=== PATIENT | male | born 1960 | race Caucasian/White ===

== ENCOUNTER 2017-03-13 20:10 | Observation (INO) | payer BC ==
[2017-03-13] MEDS ORDERED: Aspirin 81 MG Tab.Chew PO ONE (20:16)
[2017-03-13] MEDS ORDERED: Sodium Chloride 0.9% 1,000 ML IV ONE (20:16)
--- NOTE | 2017-03-13 20:19 | EDM.PDOC ---
ED HPI GENERAL MEDICAL PROBLEM - General Stated Complaint: CHEST PAIN Time Seen by Provider: 03/13/17 20:19 Source of Information: Reports: Patient - History of Present Illness INITIAL COMMENTS - FREE TEXT/NARRATIVE: HISTORY AND PHYSICAL: History of present illness: [Patient stop digoxin on his own] Review of systems: As per history of present illness and below otherwise all systems reviewed and negative. Past medical history: As per history of present illness and as reviewed below otherwise noncontributory. Surgical history: As per history of present illness and as reviewed below otherwise noncontributory. Social history: No reported history of drug or alcohol abuse. Family history: As per history of present illness and as reviewed below otherwise noncontributory. Physical exam: HEENT: Atraumatic, normocephalic, pupils reactive, negative for conjunctival pallor or scleral icterus, mucous membranes moist, throat clear, neck supple, nontender, trachea midline. Lungs: Clear to auscultation, breath sounds equal bilaterally, chest nontender. Heart: S1S2, regular, negative for clicks, rubs, or JVD. Abdomen: Soft, nondistended, nontender. Negative for masses or hepatosplenomegaly. Negative for costovertebral tenderness. Pelvis: Stable nontender. Genitourinary: Deferred. Rectal: Deferred. Extremities: Atraumatic, negative for cords or calf pain. Neurovascular unremarkable. Neuro: Awake, alert, oriented. Cranial nerves II through XII unremarkable. Cerebellum unremarkable. Motor and sensory unremarkable throughout. Exam nonfocal. Diagnostics: [CBC CMP UA troponin and peptide EKG Chest 1 view ] Therapeutics: [1 L normal saline bolus Aspirin 324 mg chewable-patient had taken aspirin just prior to arrival 325 mg at home Cardizem 20 mg IV Digoxin 0.125 No lung Lovenox per Dr. Guerra, he'll be admitted for obstetrically further management Impression: [Atrial fibrillation with RVR Medication noncompliant Definitive disposition and diagnosis as appropriate pending reevaluation and review of above. - Related Data Allergies Allergy/AdvReac Type Severity Reaction Status Date / Time No Known Allergies Allergy Verified 03/13/17 20:40 Home Meds: Home Meds Aspirin/Calcium Carbonate/Mag [Aspirin Buffered 325 mg Tab] 325 mg PO DAILY 09/26 [History] Digoxin 250 mcg PO DAILY 02/08/15 [History] Diltiazem [Cardizem CD] 240 mg PO BEDTIME cap.cd 02/09/15 [Rx] Social & Family History - Tobacco Use Smoking Status *Q: Current Every Day Smoker Years of Tobacco use: 40 Packs/Tins Daily: 3 Used Tobacco, but Quit: No Second Hand Smoke Exposure: No - Alcohol Use Days Per Week of Alcohol Use: 0 - Recreational Drug Use Recreational Drug Use: No Drug Use in Last 12 Months: No Recreational Drug Type: Reports: Marijuana/Hashish Recreational Drug Use Frequency: Monthly ED ROS GENERAL - Review of Systems Review Of Systems: ROS reveals no pertinent complaints other than HPI. ED EXAM, GENERAL - Physical Exam Exam: See Below Course - Vital Signs Last Recorded V/S: Last Vital Signs Temp 207.7 F H 03/13/17 20:42 Pulse 100 03/13/17 20:42 Resp 18 03/13/17 20:42 BP 150/87 H 03/13/17 20:42 Pulse Ox 96 03/13/17 20:42 - Orders/Labs/Meds Orders: Active Orders 24 hr Category Date Time Status EKG Documentation Completion [RC] STAT Care 03/13/17 20:16 Active Chest 1V Frontal [CR] Stat Exams 03/13/17 20:16 Taken UA W/MICROSCOPIC [URIN] Stat Lab 03/13/17 20:16 Uncollected Labs: Laboratory Tests 03/13/17 03/13/17 03/13/17 Range/Units 20:20 20:20 20:20 WBC 9.08 (4.0-11.0) K/uL RBC 5.01 (4.50-5.90) M/uL Hgb 16.0 (13.0-17.0) g/dL Hct 46.9 (38.0-50.0) % MCV 93.6 (80.0-98.0) fL MCH 31.9 (27.0-32.0) pg MCHC 34.1 (31.0-37.0) g/dL RDW Std Deviation 48.8 (28.0-62.0) fl RDW Coeff of Reji 14 (11.0-15.0) % Plt Count 203 (150-400) K/uL MPV 9.20 (7.40-12.00) fL Neut % (Auto) 47.5 L (48.0-80.0) % Lymph % (Auto) 35.1 (16.0-40.0) % [place] % (Auto) 13.1 (0.0-15.0) % Eos % (Auto) 4.0 (0.0-7.0) % Baso % (Auto) 0.3 (0.0-1.5) % Neut # (Auto) 4.3 (1.4-5.7) K/uL Lymph # (Auto) 3.2 H (0.6-2.4) K/uL [place] # (Auto) 1.2 H (0.0-0.8) K/uL Eos # (Auto) 0.4 (0.0-0.7) K/uL Baso # (Auto) 0.0 (0.0-0.1) K/uL Nucleated RBC % 0.0 /100WBC Nucleated RBCs # 0 K/uL Sodium 140 (136-146) mmol/L Potassium 3.9 (3.5-5.1) mmol/L Chloride 110 (98-110) mmol/L Carbon Dioxide 22 (21-31) mmol/L BUN 16 (6.0-23.0) mg/dL Creatinine 1.1 (0.6-1.5) mg/dL Est Cr Clr Drug Dosing 80.34 mL/min Estimated GFR (MDRD) > 60.0 ml/min Glucose 95 (60-110) mg/dL Calcium 8.9 (8.8-10.8) mg/dL Total Bilirubin 0.2 (0.1-1.5) mg/dL AST 23 (5-40) IU/L ALT 34 (8-54) IU/L Alkaline Phosphatase 91 (40-150) Creatine Kinase 101 (9-236) IU/L CK-MB (CK-2) 2.4 (0-6.6) ng/ml Troponin I < 0.10 (0.0-0.29) NG/ML B-Natriuretic Peptide < 15 (<100) PG/ML Total Protein 6.8 (6.0-8.0) g/dL Albumin 4.0 (3.5-5.0) g/dL Globulin 2.8 (2.0-3.5) g/dL Albumin/Globulin Ratio 1.4 (1.3-2.8) Meds: Medications Discontinued Medications Generic Name Dose Route Start Last Admin Trade Name Magnus PRN Reason Stop Dose Admin Aspirin 324 mg 03/13/17 20:16 03/13/17 21:29 Aspirin PO 03/13/17 20:17 Not Given ONETIME ONE Digoxin 125 mcg 03/13/17 21:41 Lanoxin IVPUSH 03/13/17 21:42 ONETIME ONE Diltiazem HCl 20 mg 03/13/17 20:23 03/13/17 21:24 Diltiazem IVPUSH 03/13/17 20:24 20 mg ONETIME ONE Administration Sodium Chloride 1,000 mls @ 999 mls/hr 03/13/17 20:16 03/13/17 21:24 Normal Saline IV 03/13/17 21:16 999 mls/hr STAT ONE Administration Departure - Departure Time of Disposition: 21:48 Disposition: Refer to Observation Condition: Fair Clinical Impression: Atrial fibrillation with RVR - Discharge Information - My Orders Last 24 Hours: My Active Orders 03/13/17 20:16 EKG Documentation Completion [RC] STAT Chest 1V Frontal [CR] Stat UA W/MICROSCOPIC [URIN] Stat - Assessment/Plan Last 24 Hours: My Active Orders 03/13/17 20:16 EKG Documentation Completion [RC] STAT Chest 1V Frontal [CR] Stat UA W/MICROSCOPIC [URIN] Stat
[2017-03-13] MEDS ORDERED: Diltiazem 25 MG/5 ML SDV IVPUSH ONE (20:23)
[2017-03-13 20:53] LABS: CHLORIDE,CL 110 mmol/L (98-110); SODIUM,NA 140 mmol/L (136-146)
[2017-03-13] MEDS ORDERED: Digoxin 500 MCG/2 ML Amp IVPUSH ONE (21:41)
[2017-03-13] MEDS ORDERED: Sodium Chloride 0.9% 1,000 ML IV SCH (22:00)
[2017-03-13] MEDS ORDERED: Sodium Chloride 0.9% 2.5 ML Syringe FLUSH PRN (23:55)
[2017-03-13] MEDS ORDERED: Diltiazem 25 MG/5 ML SDV IVPUSH PRN (23:55)
[2017-03-13] MEDS ORDERED: Sodium Chloride 0.9% 10 ML Syringe FLUSH PRN (23:55)
[2017-03-14] MEDS: Diltiazem 120 MG Cap.CD PO SCH ×2 (01:08→07:54)
[2017-03-14] MEDS ORDERED: Digoxin 250 MCG Tab PO ONE (07:47)
--- NOTE | 2017-03-14 07:51 | PCM.HP ---
H&P History of Present Illness - General Admit Problem/Dx: Admission Diagnosis/Problem Admission Diagnosis/Problem Atrial fibrillation - History of Present Illness Initial Comments - Free Text/Narative: 56 yo male with pmh of atrial fibrillation who had stopped taking digoxin and diltiazem on his own. He presented to the ED with a complaint of palpitations for one day. He was noted to be in atrial fibrillation with heart rate in the 150s. He was given digoxin and IV diltiazem with improvement of his heart rate in the 90s. He was then referred for observation overnight. - Related Data Allergies/Adverse Reactions: Allergies Allergy/AdvReac Type Severity Reaction Status Date / Time No Known Allergies Allergy Verified 03/13/17 20:40 Home Medications: Home Meds Aspirin/Calcium Carbonate/Mag [Aspirin Buffered 325 mg Tab] 325 mg PO DAILY 09/26 [History] Digoxin 250 mcg PO DAILY 02/08/15 [History] Diltiazem [Cardizem CD] 240 mg PO BEDTIME cap.cd 02/09/15 [Rx] Past Medical History Cardiovascular History: Reports: Afib - Past Surgical History HEENT Surgical History: Reports: Adenoidectomy, Tonsillectomy Social & Family History - Family History Family Medical History: Noncontributory - Tobacco Use Smoking Status *Q: Current Every Day Smoker Years of Tobacco use: 45 Packs/Tins Daily: 3 Used Tobacco, but Quit: No Second Hand Smoke Exposure: No - Caffeine Use Caffeine Use: Reports: None - Alcohol Use Days Per Week of Alcohol Use: 0 - Recreational Drug Use Recreational Drug Use: No Drug Use in Last 12 Months: No Recreational Drug Type: Reports: Marijuana/Hashish Recreational Drug Use Frequency: Monthly H&P Review of Systems - Review of Systems: Review Of Systems: ROS reveals no pertinent complaints other than HPI. Exam - Exam Exam: See Below - Vital Signs Vital Signs: Last Vital Signs Temp 36.8 C 03/14/17 04:00 Pulse 78 03/14/17 04:00 Resp 19 03/14/17 04:00 BP 104/68 03/14/17 04:00 Pulse Ox 93 L 03/14/17 04:00 Weight: 95.254 kg - Exam General: Alert, Oriented HEENT: Mucosa Moist & Blades Lungs: Clear to Auscultation, Normal Respiratory Effort Cardiovascular: Regular Rate, Regular Rhythm GI/Abdominal Exam: Soft, Non-Tender Extremities: Non-Tender, No Pedal Edema Skin: Warm, Dry, Intact - Patient Data Lab Results Last 24 hrs: Laboratory Results - last 24 hr 03/13/17 03/14/17 Range/Units 23:00 05:47 Magnesium 1.9 (1.5-2.3) mEq/L Urine Color YELLOW Urine Appearance CLEAR Urine pH 6.0 (5.0-8.0) Ur Specific [place] 1.010 (1.001-1.035) Urine Protein NEGATIVE (NEGATIVE) mg/dL Urine Glucose (UA) NEGATIVE (NEGATIVE) mg/dL Urine Ketones NEGATIVE (NEGATIVE) mg/dL Urine Occult Blood NEGATIVE (NEGATIVE) Urine Nitrite NEGATIVE (NEGATIVE) Urine Bilirubin NEGATIVE (NEGATIVE) Urine Urobilinogen 0.2 (<2.0) EU/dL Ur Leukocyte Esterase NEGATIVE (NEGATIVE) Urine RBC NONE SEEN (0-2/HPF) Urine WBC 0-1 (0-5/HPF) Ur Epithelial Cells NOT SEEN (NONE-FEW) Urine Bacteria RARE (NEGATIVE) Result Diagrams: 03/13/17 20:20 03/13/17 20:20 *Q Meaningful Use (ADM) - VTE *Q VTE Criteria *Q: - Stroke *Q Stroke Criteria *Q: - AMI *Q AMI Criteria *Q: Problem List Initiated/Reviewed/Updated: Yes Orders Last 24hrs: Active Orders 24 hr Category Date Time Status Ready for Discharge [RC] PER UNIT ROUTINE Care 03/14/17 07:43 Ordered Regular Diet [DIET] Diet 03/14/17 Breakfast Active MAGNESIUM [CHEM] AM Lab 03/15/17 05:11 Ordered Diltiazem Med 03/13/17 23:55 Active 10 mg IVPUSH Q2H PRN Diltiazem [Cardizem CD] Med 03/13/17 23:45 Active 240 mg PO BEDTIME Sodium Chloride 0.9% [Saline Flush] Med 03/13/17 23:55 Active 10 ml FLUSH ASDIRECTED PRN Sodium Chloride 0.9% [Saline Flush] Med 03/13/17 23:55 Active 2.5 ml FLUSH ASDIRECTED PRN Convert IV to Saline Lock [OM.PC] Routine Oth 03/13/17 23:55 Ordered Medication Orders Diltiazem HCl (Diltiazem) 10 mg IVPUSH Q2H PRN PRN Reason: Tachycardia Diltiazem HCl (Cardizem Cd) 240 mg PO BEDTIME ERIKA Last Admin: 03/14/17 01:08 Dose: Sodium Chloride (Saline Flush) 10 ml FLUSH ASDIRECTED PRN PRN Reason: Keep Vein Open Sodium Chloride (Saline Flush) 2.5 ml FLUSH ASDIRECTED PRN PRN Reason: Keep Vein Open Assessment/Plan Comment:: 56 yo male who was admitted for atrial fibrillation with RVR. Diltiazem 240mg daily was restarted. His heart rate has been stable with resting heart rate in the 60s-90s. The plan is to discharge him home today to have follow up with Dr. Fields.
[2017-03-14 15:56] VITALS: BP 116/71
--- NOTE | 2017-03-16 18:54 | CR ---
EXAM DATE: 03/13/17 PATIENT'S AGE: 56 Patient: IMAN VALDOVINOS Facility: [place], [place] Site . Site : [id number] Study: XRay Chest [id number]/30/2017 9:39:59 PM Ordering Physician: Graham Busch Final Report: INDICATION: Pain. Shortness of breath. Technique: AP portable chest x-ray. Comparison: 02/08/2015. Findings: Heart size upper limits of normal. No focal infiltrate or consolidation in either lung. Chest otherwise unremarkable. Dictated by Deejay Johnston MD @ Mar 13 2017 9:50PM (Electronic Signature) Report Signed by Proxy. OTTO
== END 2017-03-14 17:05 | disposition home or self-care (01) ==
LOC: MW.ED 20:10 → MW.MS 21:48
PROVIDERS: ADMIT Internal Medicine; ATTEND Internal Medicine
DX: I48.91 Unspecified atrial fibrillation (principal); F17.200 Nicotine dependence, unspecified, uncomplicated; Z79.82 Long term (current) use of aspirin; Z90.89 Acquired absence of other organs
CPT/HCPCS: 36415; 71010; 80053; 81001; 82550; 82553; 83735; 83880; 84484; 85025; 93005; 96361; 96374; 96375; 99285; A9270; J1160; J3490; J7040; 99284; G0378

== ENCOUNTER 2018-10-26 04:55 | Observation (INO) | payer BC ==
[2018-10-26] MEDS ORDERED: Aspirin 81 MG Tab.Chew PO ONE ×2 (04:57→05:02)
[2018-10-26] MEDS ORDERED: Sodium Chloride 0.9% 2.5 ML Syringe FLUSH PRN (04:57)
[2018-10-26] MEDS ORDERED: Sodium Chloride 0.9% 10 ML Syringe FLUSH PRN (04:57)
[2018-10-26] MEDS ORDERED: Diltiazem 25 MG/5 ML SDV IVPUSH ONE ×2 (05:02→05:27)
[2018-10-26] MEDS ORDERED: Enoxaparin 100 MG/1 ML Syringe SUBCUT ONE (05:03)
--- NOTE | 2018-10-26 05:03 | EDM.PDOC ---
ED HPI GENERAL MEDICAL PROBLEM - General Chief Complaint: Cardiovascular Problem Stated Complaint: AFIB Time Seen by Provider: 10/26/18 04:56 - History of Present Illness INITIAL COMMENTS - FREE TEXT/NARRATIVE: HISTORY AND PHYSICAL: History of present illness: The patient is a 58 year-old male with a known history of atrial fibrillation who presents with rapid heartbeat and lightheadedness that started approximately 1 AM, 4 hours ago, when he was at work. 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 He had no chest pain or shortness of breath no nausea no abdominal pain and he did not pass out or blackout. He said he only felt a little lightheaded but not dizzy. The patient said that he did go out to his car and take his daily medications and took 1 baby aspirin. He is not on any blood thinners other than the aspirin daily and he is never done a stress test or had a heart catheter in the past. He says that he was not experiencing any pain but he knew that his A. fib was in a rapid rhythm and when it did not resolve over the last 4 hours he thought he should get checked out. He said he wanted to finish his work at his job he came here. The patient has been eating and drinking normally and has not had any systemic issues such as fever chills nausea vomiting diarrhea or upper respiratory infections. The patient has seen Dr. Lima our die presser in the past but does not regularly follow with him but does follow in our family practice clinic with Dr. Fields. He has no leg pain or swelling and he recently had blood work a few months ago including cholesterol and lipid panel. Currently in the ED in the bed the patient says he is really asymptomatic even though his heart rate is varying from 110s to 145. According to the computer the patient has been on digitoxin in the past but he says he is not taking that and only the Cardizem. Review of systems: As per history of present illness and below otherwise all systems reviewed and negative. Past medical history: As per history of present illness and as reviewed below otherwise noncontributory. Surgical history: As per history of present illness and as reviewed below otherwise noncontributory. Social history: No reported history of drug or alcohol abuse. Family history: As per history of present illness and as reviewed below otherwise noncontributory. Physical exam: General: Well-developed well-nourished man who is nontoxic and vital signs are noted by me. On my personal evaluation is heart rate was variable from 110s to 145. He is not diaphoretic and he speaking clearly and easily in the ED. He ambulated into the ED without assistance or deficits HEENT: Atraumatic, normocephalic,negative for conjunctival pallor or scleral icterus, mucous membranes moist, throat clear, neck supple, nontender, trachea midline. Lungs: Clear to auscultation, breath sounds equal bilaterally, chest nontender. Heart: S1S2, rapid rhythm and irregularly irregular rate consistent with A. fib , no overt murmurs are appreciated Abdomen: Soft, nondistended, nontender. Negative for masses or hepatosplenomegaly. NABS Pelvis: Stable nontender. Genitourinary: Deferred. Rectal: Deferred. Extremities: Atraumatic, negative for cords or calf pain. Neurovascular unremarkable. No pedal edema or leg asymmetry Neuro: Awake, alert, oriented. Cranial nerves II through XII unremarkable. Cerebellum unremarkable. Motor and sensory unremarkable throughout. Exam nonfocal. Diagnostics: EKG CBC CMP INR troponin chest x-ray Therapeutics: IV O2 monitor IV fluids 3 baby aspirin as patient took one at 1:00 this morning Cardizem Lovenox 0545: Heart rate is variable after a total of 20 of Cardizem and is now down to 80s to 1 teens. Patient is again still not having any chest pain or symptomatology and he is aware of the negative test results and the need for observation. I told him that at this point he needed medication adjustment his rate down. I discussed this case with Dr. Murdock and he agrees the patient does not need to be in a Cardizem drip and can go to telemetry Impression: A. fib with RVR Definitive disposition and diagnosis as appropriate pending reevaluation and review of above. - Related Data Allergies Allergy/AdvReac Type Severity Reaction Status Date / Time No Known Allergies Allergy Verified 10/26/18 05:02 Home Meds: Home Meds Diltiazem [Cardizem CD] 240 mg PO DAILY 03/14/17 [History] Aspirin 1 tab PO DAILY 10/26/18 [History] Past Medical History Cardiovascular History: Reports: Afib - Past Surgical History HEENT Surgical History: Reports: Adenoidectomy, Tonsillectomy Social & Family History - Family History Family Medical History: Noncontributory - Caffeine Use Caffeine Use: Reports: None ED ROS GENERAL - Review of Systems Review Of Systems: ROS reveals no pertinent complaints other than HPI. ED EXAM, GENERAL - Physical Exam Exam: See Below (See dictation) Course - Vital Signs Last Recorded V/S: Last Vital Signs Temp 36.1 C 10/26/18 04:55 Pulse 103 H 10/26/18 05:35 Resp 18 10/26/18 05:35 BP 117/75 10/26/18 05:35 Pulse Ox 96 10/26/18 05:35 - Orders/Labs/Meds Orders: Active Orders 24 hr Category Date Time Status Patient Status [ADT] Stat ADT 10/26/18 05:44 Ordered Cardiac Monitoring [RC] . DIRECTED Care 10/26/18 04:57 Active EKG Documentation Completion [RC] STAT Care 10/26/18 04:57 Active Oxygen Therapy, ED [RC] ASDIRECTED Care 10/26/18 04:57 Active Pulse Oximetry [RC] ASDIRECTED Care 10/26/18 04:57 Active UA RFX MARIA FERNANDA AND CULT IF INDIC [URIN] Stat Lab 10/26/18 04:57 Ordered Sodium Chloride 0.9% [Normal Saline] 1,000 ml Med 10/26/18 05:15 Active IV ASDIRECTED Sodium Chloride 0.9% [Saline Flush] Med 10/26/18 04:57 Active 10 ml FLUSH ASDIRECTED PRN Sodium Chloride 0.9% [Saline Flush] Med 10/26/18 04:57 Active 2.5 ml FLUSH ASDIRECTED PRN Saline Lock Insert [OM.PC] Stat Oth 10/26/18 04:57 Ordered Medication Orders Sodium Chloride (Normal Saline) 1,000 mls @ 50 mls/hr IV ASDIRECTED ERIKA Last Infusion: 10/26/18 05:44 Dose: 50 mls/hr Admin: 10/26/18 05:10 Dose: 50 mls/hr Sodium Chloride (Saline Flush) 10 ml FLUSH ASDIRECTED PRN PRN Reason: Keep Vein Open Sodium Chloride (Saline Flush) 2.5 ml FLUSH ASDIRECTED PRN PRN Reason: Keep Vein Open Labs: Laboratory Tests 10/26/18 10/26/18 10/26/18 Range/Units 05:00 05:00 05:00 WBC 8.80 (4.0-11.0) K/uL RBC 4.85 (4.50-5.90) M/uL Hgb 15.7 (13.0-17.0) g/dL Hct 46.6 (38.0-50.0) % MCV 96.1 (80.0-98.0) fL MCH 32.4 H (27.0-32.0) pg MCHC 33.7 (31.0-37.0) g/dL RDW Std Deviation 47.3 (28.0-62.0) fl RDW Coeff of Reji 13 (11.0-15.0) % Plt Count 209 (150-400) K/uL MPV 10.00 (7.40-12.00) fL Neut % (Auto) 63.1 (48.0-80.0) % Lymph % (Auto) 24.5 (16.0-40.0) % [place] % (Auto) 10.9 (0.0-15.0) % Eos % (Auto) 1.3 (0.0-7.0) % Baso % (Auto) 0.2 (0.0-1.5) % Neut # (Auto) 5.6 (1.4-5.7) K/uL Lymph # (Auto) 2.2 (0.6-2.4) K/uL [place] # (Auto) 1.0 H (0.0-0.8) K/uL Eos # (Auto) 0.1 (0.0-0.7) K/uL Baso # (Auto) 0.0 (0.0-0.1) K/uL Nucleated RBC % 0.0 /100WBC Nucleated RBCs # 0 K/uL INR 1.00 Sodium 141 (136-148) mmol/L Potassium 3.8 (3.5-5.1) mmol/L Chloride 108 H (98-107) mmol/L Carbon Dioxide 24.6 (21.0-32.0) mmol/L BUN 14 (7.0-18.0) mg/dL Creatinine 0.9 (0.8-1.3) mg/dL Est Cr Clr Drug Dosing TNP Estimated GFR (MDRD) > 60.0 ml/min Glucose 116 H (74-106) mg/dL Calcium 9.0 (8.5-10.1) mg/dL Total Bilirubin 0.4 (0.2-1.0) mg/dL AST 24 (15-37) IU/L ALT 24 (14-63) IU/L Alkaline Phosphatase 103 (46-116) U/L Troponin I < 0.050 (0.000-0.056) ng/mL Total Protein 6.8 (6.4-8.2) g/dL Albumin 3.8 (3.4-5.0) g/dL Globulin 3.0 (2.6-4.0) g/dL Albumin/Globulin Ratio 1.3 (0.9-1.6) Meds: Medications Generic Name Dose Route Start Last Admin Trade Name Freq PRN Reason Stop Dose Admin Sodium Chloride 1,000 mls @ 50 mls/hr 10/26/18 05:15 10/26/18 05:44 Normal Saline IV 50 mls/hr ASDIRECTED ERIKA Infusion Sodium Chloride 10 ml 10/26/18 04:57 Saline Flush FLUSH ASDIRECTED PRN Keep Vein Open Sodium Chloride 2.5 ml 10/26/18 04:57 Saline Flush FLUSH ASDIRECTED PRN Keep Vein Open Discontinued Medications Generic Name Dose Route Start Last Admin Trade Name Freq PRN Reason Stop Dose Admin Aspirin 324 mg 10/26/18 04:57 Aspirin PO 10/26/18 04:58 ONETIME ONE Aspirin 243 mg 10/26/18 05:02 10/26/18 05:10 Aspirin PO 10/26/18 05:03 243 mg ONETIME ONE Administration Diltiazem HCl 10 mg 10/26/18 05:02 10/26/18 05:12 Diltiazem IVPUSH 10/26/18 05:03 10 mg ONETIME ONE Administration Diltiazem HCl 10 mg 10/26/18 05:27 10/26/18 05:31 Diltiazem IVPUSH 10/26/18 05:28 10 mg ONETIME ONE Administration Enoxaparin Sodium 100 mg 10/26/18 05:03 10/26/18 05:15 Lovenox SUBCUT 10/26/18 05:04 100 mg ONETIME ONE Administration Departure - Departure Time of Disposition: 05:46 Disposition: Refer to Observation Reason for Transfer *Q: Primary PCI Indicated Condition: Good Clinical Impression: Atrial fibrillation with RVR Referrals: Angel Fields MD [Primary Care Provider] - Forms: ED Department Discharge - My Orders Last 24 Hours: My Active Orders 10/26/18 04:57 Cardiac Monitoring [RC] . DIRECTED EKG Documentation Completion [RC] STAT Oxygen Therapy, ED [RC] ASDIRECTED Pulse Oximetry [RC] ASDIRECTED UA RFX MARIA FERNANDA AND CULT IF INDIC [URIN] Stat Sodium Chloride 0.9% [Saline Flush] 10 ml FLUSH ASDIRECTED PRN Sodium Chloride 0.9% [Saline Flush] 2.5 ml FLUSH ASDIRECTED PRN Saline Lock Insert [OM.PC] Stat 10/26/18 05:15 Sodium Chloride 0.9% [Normal Saline] 1,000 ml IV ASDIRECTED 10/26/18 05:44 Patient Status [ADT] Stat - Assessment/Plan Last 24 Hours: My Active Orders 10/26/18 04:57 Cardiac Monitoring [RC] . DIRECTED EKG Documentation Completion [RC] STAT Oxygen Therapy, ED [RC] ASDIRECTED Pulse Oximetry [RC] ASDIRECTED UA RFX MARIA FERNANDA AND CULT IF INDIC [URIN] Stat Sodium Chloride 0.9% [Saline Flush] 10 ml FLUSH ASDIRECTED PRN Sodium Chloride 0.9% [Saline Flush] 2.5 ml FLUSH ASDIRECTED PRN Saline Lock Insert [OM.PC] Stat 10/26/18 05:15 Sodium Chloride 0.9% [Normal Saline] 1,000 ml IV ASDIRECTED 10/26/18 05:44 Patient Status [ADT] Stat
[2018-10-26] MEDS ORDERED: Sodium Chloride 0.9% 1,000 ML IV SCH (05:15)
[2018-10-26 05:35] LABS: CHLORIDE,CL 108 mmol/L (98-107); SODIUM,NA 141 mmol/L (136-148)
--- NOTE | 2018-10-26 05:36 | CR ---
Indication: Pain, shortness of breath Technique: Chest 1 view Comparison: None Findings/Impression: Cardiovascular and mediastinum: Heart size and vasculature are normal in caliber and appearance. Mediastinum is within normal limits. Lungs and pleural space: Lungs are clear. No sign of infiltrate or mass. No sign of pleural effusion. No pneumothorax. Bones and soft tissues: No significant findings. Dictated by Mary Schuster MD @ Oct 26 2018 5:34AM Signed by Dr. Mary Schuster @ Oct 26 2018 5:34AM
[2018-10-26] MEDS ORDERED: Ondansetron 4 MG Tab.DIS PO PRN (08:10)
[2018-10-26] MEDS ORDERED: Acetaminophen 325 MG Tab PO PRN (08:10)
[2018-10-26] MEDS ORDERED: Enoxaparin 40 MG/0.4 ML Syringe SUBCUT SCH (08:15)
[2018-10-26 08:37] LABS: HEMOGLOBIN A1C 5.5 % (4.5-6.2)
[2018-10-26] MEDS ORDERED: Diltiazem 120 MG Cap.CD PO SCH (09:30)
--- NOTE | 2018-10-26 11:18 | PCM.DCSUM1 ---
<Byron Markham - Last Filed: 10/26/18 11:18> Discharge Summary - Hospital Course Free Text/Narrative:: 58-year-old male admitted for atrial fibrillation with RVR. On admission, his heart rate was in between 110-140's. He was given 2 doses of IV diltiazem 20 mg in the ER and his heart rate improved and was in between 70-80. Patient remained in atrial fibrillation at time of discharge and was rate controlled. ECHO is pending. He reported no dizziness, shortness of breath, chest pain, nausea or vomiting at time of discharge. Patient instructed to follow-up with his PCP Dr. Fields and Dr. Farrsi of cardiology. He was discharged on his home medications of diltiazem 240 mg daily and aspirin 81 mg daily. - Discharge Data Discharge Date: 10/26/18 Discharge Disposition: Home, Self-Care 01 Condition: Fair - Discharge Diagnosis/Problem(s) (1) Atrial fibrillation with RVR SNOMED Code(s): [id number] ICD Code: I48.91 - UNSPECIFIED ATRIAL FIBRILLATION Status: Acute Current Visit: No - Patient Instructions Diet: Heart Healthy Diet Activity: As Tolerated Notify Provider of: Fever, Increased Pain, Swelling and Redness, Drainage, Nausea and/or Vomiting - Discharge Plan *PRESCRIPTION DRUG MONITORING PROGRAM REVIEWED*: Not Applicable *COPY OF PRESCRIPTION DRUG MONITORING REPORT IN PATIENT AUDREY: Not Applicable Home Medications: Home Meds Diltiazem [Cardizem CD] 240 mg PO DAILY 03/14/17 [History] Aspirin 1 tab PO DAILY 10/26/18 [History] Patient Handouts: Atrial Fibrillation, [id number] Referrals: [facility] [Outside] Angel Fields MD [Primary Care Provider] - 10/31/18 9:15 am - Discharge Summary/Plan Comment DC Time >30 min.: No - Patient Data Vitals - Most Recent: Last Vital Signs Temp 97.9 F 10/26/18 06:33 Pulse 88 10/26/18 10:00 Resp 18 10/26/18 06:33 BP 133/71 10/26/18 10:00 Pulse Ox 95 10/26/18 06:33 Weight - Most Recent: 91.989 kg Lab Results - Last 24 hrs: Laboratory Results - last 24 hr 0810/26/18 10/26/18 Range/Units 05:00 05:00 05:00 WBC 8.80 (4.0-11.0) K/uL RBC 4.85 (4.50-5.90) M/uL Hgb 15.7 (13.0-17.0) g/dL Hct 46.6 (38.0-50.0) % MCV 96.1 (80.0-98.0) fL MCH 32.4 H (27.0-32.0) pg MCHC 33.7 (31.0-37.0) g/dL RDW Std Deviation 47.3 (28.0-62.0) fl RDW Coeff of Reji 13 (11.0-15.0) % Plt Count 209 (150-400) K/uL MPV 10.00 (7.40-12.00) fL Neut % (Auto) 63.1 (48.0-80.0) % Lymph % (Auto) 24.5 (16.0-40.0) % [place] % (Auto) 10.9 (0.0-15.0) % Eos % (Auto) 1.3 (0.0-7.0) % Baso % (Auto) 0.2 (0.0-1.5) % Neut # (Auto) 5.6 (1.4-5.7) K/uL Lymph # (Auto) 2.2 (0.6-2.4) K/uL [place] # (Auto) 1.0 H (0.0-0.8) K/uL Eos # (Auto) 0.1 (0.0-0.7) K/uL Baso # (Auto) 0.0 (0.0-0.1) K/uL Nucleated RBC % 0.0 /100WBC Nucleated RBCs # 0 K/uL INR 1.00 Sodium 141 (136-148) mmol/L Potassium 3.8 (3.5-5.1) mmol/L Chloride 108 H (98-107) mmol/L Carbon Dioxide 24.6 (21.0-32.0) mmol/L BUN 14 (7.0-18.0) mg/dL Creatinine 0.9 (0.8-1.3) mg/dL Est Cr Clr Drug Dosing TNP Estimated GFR (MDRD) > 60.0 ml/min Glucose 116 H (74-106) mg/dL Hemoglobin A1c (4.5-6.2) % Calcium 9.0 (8.5-10.1) mg/dL Total Bilirubin 0.4 (0.2-1.0) mg/dL AST 24 (15-37) IU/L ALT 24 (14-63) IU/L Alkaline Phosphatase 103 (46-116) U/L Troponin I < 0.050 (0.000-0.056) ng/mL Total Protein 6.8 (6.4-8.2) g/dL Albumin 3.8 (3.4-5.0) g/dL Globulin 3.0 (2.6-4.0) g/dL Albumin/Globulin Ratio 1.3 (0.9-1.6) Triglycerides (0-200) mg/dL Cholesterol (50-200) mg/dL LDL Cholesterol, Calc (60-180) mg/dL VLDL Cholesterol (5-55) mg/dL HDL Cholesterol (40-60) mg/dL Cholesterol/HDL Ratio (3.3-6.0) TSH 3rd Generation (0.36-3.74) uIU/mL Urine Color Urine Appearance Urine pH (5.0-8.0) Ur Specific [place] (1.001-1.035) Urine Protein (NEGATIVE) mg/dL Urine Glucose (UA) (NEGATIVE) mg/dL Urine Ketones (NEGATIVE) mg/dL Urine Occult Blood (NEGATIVE) Urine Nitrite (NEGATIVE) Urine Bilirubin (NEGATIVE) Urine Urobilinogen (<2.0) EU/dL Ur Leukocyte Esterase (NEGATIVE) 10/26/18 10/26/18 10/26/18 Range/Units 05:00 05:00 06:15 WBC (4.0-11.0) K/uL RBC (4.50-5.90) M/uL Hgb (13.0-17.0) g/dL Hct (38.0-50.0) % MCV (80.0-98.0) fL MCH (27.0-32.0) pg MCHC (31.0-37.0) g/dL RDW Std Deviation (28.0-62.0) fl RDW Coeff of Reji (11.0-15.0) % Plt Count (150-400) K/uL MPV (7.40-12.00) fL Neut % (Auto) (48.0-80.0) % Lymph % (Auto) (16.0-40.0) % [place] % (Auto) (0.0-15.0) % Eos % (Auto) (0.0-7.0) % Baso % (Auto) (0.0-1.5) % Neut # (Auto) (1.4-5.7) K/uL Lymph # (Auto) (0.6-2.4) K/uL [place] # (Auto) (0.0-0.8) K/uL Eos # (Auto) (0.0-0.7) K/uL Baso # (Auto) (0.0-0.1) K/uL Nucleated RBC % /100WBC Nucleated RBCs # K/uL INR Sodium (136-148) mmol/L Potassium (3.5-5.1) mmol/L Chloride (98-107) mmol/L Carbon Dioxide (21.0-32.0) mmol/L BUN (7.0-18.0) mg/dL Creatinine (0.8-1.3) mg/dL Est Cr Clr Drug Dosing Estimated GFR (MDRD) ml/min Glucose (74-106) mg/dL Hemoglobin A1c 5.5 (4.5-6.2) % Calcium (8.5-10.1) mg/dL Total Bilirubin (0.2-1.0) mg/dL AST (15-37) IU/L ALT (14-63) IU/L Alkaline Phosphatase (46-116) U/L Troponin I (0.000-0.056) ng/mL Total Protein (6.4-8.2) g/dL Albumin (3.4-5.0) g/dL Globulin (2.6-4.0) g/dL Albumin/Globulin Ratio (0.9-1.6) Triglycerides 67 (0-200) mg/dL Cholesterol 161 (50-200) mg/dL LDL Cholesterol, Calc 113 (60-180) mg/dL VLDL Cholesterol 13 (5-55) mg/dL HDL Cholesterol 35 L (40-60) mg/dL Cholesterol/HDL Ratio 4.6 (3.3-6.0) TSH 3rd Generation 1.23 (0.36-3.74) uIU/mL Urine Color YELLOW Urine Appearance CLEAR Urine pH 7.0 (5.0-8.0) Ur Specific [place] 1.010 (1.001-1.035) Urine Protein NEGATIVE (NEGATIVE) mg/dL Urine Glucose (UA) NEGATIVE (NEGATIVE) mg/dL Urine Ketones NEGATIVE (NEGATIVE) mg/dL Urine Occult Blood NEGATIVE (NEGATIVE) Urine Nitrite NEGATIVE (NEGATIVE) Urine Bilirubin NEGATIVE (NEGATIVE) Urine Urobilinogen 0.2 (<2.0) EU/dL Ur Leukocyte Esterase NEGATIVE (NEGATIVE) Med Orders - Current: Current Medications Acetaminophen (Tylenol) 650 mg PO Q4H PRN PRN Reason: Pain (Mild 1-3)/fever Aspirin (Aspirin) 81 mg PO DAILY [facility] Diltiazem HCl (Cardizem Cd) 240 mg PO DAILY [facility] Last Admin: 10/26/18 10:00 Dose: 240 mg Sodium Chloride (Normal Saline) 1,000 mls @ 50 mls/hr IV ASDIRECTED [facility] Last Infusion: 10/26/18 05:44 Dose: 50 mls/hr Ondansetron HCl (Zofran Odt) 4 mg PO Q4H PRN PRN Reason: nausea, able to take PO Sodium Chloride (Saline Flush) 10 ml FLUSH ASDIRECTED PRN PRN Reason: Keep Vein Open Sodium Chloride (Saline Flush) 2.5 ml FLUSH ASDIRECTED PRN PRN Reason: Keep Vein Open Discontinued Medications Aspirin (Aspirin) 324 mg PO ONETIME ONE Stop: 10/26/18 04:58 Aspirin (Aspirin) 243 mg PO ONETIME ONE Stop: 10/26/18 05:03 Last Admin: 10/26/18 05:10 Dose: 243 mg Diltiazem HCl (Diltiazem) 10 mg IVPUSH ONETIME ONE Stop: 10/26/18 05:03 Last Admin: 10/26/18 05:12 Dose: 10 mg Diltiazem HCl (Diltiazem) 10 mg IVPUSH ONETIME ONE Stop: 10/26/18 05:28 Last Admin: 10/26/18 05:31 Dose: 10 mg Enoxaparin Sodium (Lovenox) 100 mg SUBCUT ONETIME ONE Stop: 10/26/18 05:04 Last Admin: 10/26/18 05:15 Dose: 100 mg Enoxaparin Sodium (Lovenox) 40 mg SUBCUT Q24H ERIKA Last Admin: 10/26/18 09:59 Dose: Not Given <Rudolph Murdock - Last Filed: 10/26/18 13:13> Discharge Summary - Hospital Course HPI Initial Comments: I have seen and examined the patient independently of the medical leader, Dr. Rashi MD. I have reviewed and approve of the plan of care as outlined by the resident. I have discussed the case with the resident. Please see orders. - Patient Data Vitals - Most Recent: Last Vital Signs Temp 36.6 C 10/26/18 12:10 Pulse 78 10/26/18 12:10 Resp 20 10/26/18 12:10 BP 128/86 10/26/18 12:10 Pulse Ox 95 10/26/18 12:10 Lab Results - Last 24 hrs: Laboratory Results - last 24 hr 10/26/18 10/26/18 10/26/18 Range/Units 05:00 05:00 05:00 WBC 8.80 (4.0-11.0) K/uL RBC 4.85 (4.50-5.90) M/uL Hgb 15.7 (13.0-17.0) g/dL Hct 46.6 (38.0-50.0) % MCV 96.1 (80.0-98.0) fL MCH 32.4 H (27.0-32.0) pg MCHC 33.7 (31.0-37.0) g/dL RDW Std Deviation 47.3 (28.0-62.0) fl RDW Coeff of Reji 13 (11.0-15.0) % Plt Count 209 (150-400) K/uL MPV 10.00 (7.40-12.00) fL Neut % (Auto) 63.1 (48.0-80.0) % Lymph % (Auto) 24.5 (16.0-40.0) % [place] % (Auto) 10.9 (0.0-15.0) % Eos % (Auto) 1.3 (0.0-7.0) % Baso % (Auto) 0.2 (0.0-1.5) % Neut # (Auto) 5.6 (1.4-5.7) K/uL Lymph # (Auto) 2.2 (0.6-2.4) K/uL [place] # (Auto) 1.0 H (0.0-0.8) K/uL Eos # (Auto) 0.1 (0.0-0.7) K/uL Baso # (Auto) 0.0 (0.0-0.1) K/uL Nucleated RBC % 0.0 /100WBC Nucleated RBCs # 0 K/uL INR 1.00 Sodium 141 (136-148) mmol/L Potassium 3.8 (3.5-5.1) mmol/L Chloride 108 H (98-107) mmol/L Carbon Dioxide 24.6 (21.0-32.0) mmol/L BUN 14 (7.0-18.0) mg/dL Creatinine 0.9 (0.8-1.3) mg/dL Est Cr Clr Drug Dosing TNP Estimated GFR (MDRD) > 60.0 ml/min Glucose 116 H (74-106) mg/dL Hemoglobin A1c (4.5-6.2) % Calcium 9.0 (8.5-10.1) mg/dL Total Bilirubin 0.4 (0.2-1.0) mg/dL AST 24 (15-37) IU/L ALT 24 (14-63) IU/L Alkaline Phosphatase 103 (46-116) U/L Troponin I < 0.050 (0.000-0.056) ng/mL Total Protein 6.8 (6.4-8.2) g/dL Albumin 3.8 (3.4-5.0) g/dL Globulin 3.0 (2.6-4.0) g/dL Albumin/Globulin Ratio 1.3 (0.9-1.6) Triglycerides (0-200) mg/dL Cholesterol (50-200) mg/dL LDL Cholesterol, Calc (60-180) mg/dL VLDL Cholesterol (5-55) mg/dL HDL Cholesterol (40-60) mg/dL Cholesterol/HDL Ratio (3.3-6.0) TSH 3rd Generation (0.36-3.74) uIU/mL Urine Color Urine Appearance Urine pH (5.0-8.0) Ur Specific [place] (1.001-1.035) Urine Protein (NEGATIVE) mg/dL Urine Glucose (UA) (NEGATIVE) mg/dL Urine Ketones (NEGATIVE) mg/dL Urine Occult Blood (NEGATIVE) Urine Nitrite (NEGATIVE) Urine Bilirubin (NEGATIVE) Urine Urobilinogen (<2.0) EU/dL Ur Leukocyte Esterase (NEGATIVE) 10/26/18 10/26/18 10/26/18 Range/Units 05:00 05:00 06:15 WBC (4.0-11.0) K/uL RBC (4.50-5.90) M/uL Hgb (13.0-17.0) g/dL Hct (38.0-50.0) % MCV (80.0-98.0) fL MCH (27.0-32.0) pg MCHC (31.0-37.0) g/dL RDW Std Deviation (28.0-62.0) fl RDW Coeff of Reji (11.0-15.0) % Plt Count (150-400) K/uL MPV (7.40-12.00) fL Neut % (Auto) (48.0-80.0) % Lymph % (Auto) (16.0-40.0) % [place] % (Auto) (0.0-15.0) % Eos % (Auto) (0.0-7.0) % Baso % (Auto) (0.0-1.5) % Neut # (Auto) (1.4-5.7) K/uL Lymph # (Auto) (0.6-2.4) K/uL [place] # (Auto) (0.0-0.8) K/uL Eos # (Auto) (0.0-0.7) K/uL Baso # (Auto) (0.0-0.1) K/uL Nucleated RBC % /100WBC Nucleated RBCs # K/uL INR Sodium (136-148) mmol/L Potassium (3.5-5.1) mmol/L Chloride (98-107) mmol/L Carbon Dioxide (21.0-32.0) mmol/L BUN (7.0-18.0) mg/dL Creatinine (0.8-1.3) mg/dL Est Cr Clr Drug Dosing Estimated GFR (MDRD) ml/min Glucose (74-106) mg/dL Hemoglobin A1c 5.5 (4.5-6.2) % Calcium (8.5-10.1) mg/dL Total Bilirubin (0.2-1.0) mg/dL AST (15-37) IU/L ALT (14-63) IU/L Alkaline Phosphatase (46-116) U/L Troponin I (0.000-0.056) ng/mL Total Protein (6.4-8.2) g/dL Albumin (3.4-5.0) g/dL Globulin (2.6-4.0) g/dL Albumin/Globulin Ratio (0.9-1.6) Triglycerides 67 (0-200) mg/dL Cholesterol 161 (50-200) mg/dL LDL Cholesterol, Calc 113 (60-180) mg/dL VLDL Cholesterol 13 (5-55) mg/dL HDL Cholesterol 35 L (40-60) mg/dL Cholesterol/HDL Ratio 4.6 (3.3-6.0) TSH 3rd Generation 1.23 (0.36-3.74) uIU/mL Urine Color YELLOW Urine Appearance CLEAR Urine pH 7.0 (5.0-8.0) Ur Specific [place] 1.010 (1.001-1.035) Urine Protein NEGATIVE (NEGATIVE) mg/dL Urine Glucose (UA) NEGATIVE (NEGATIVE) mg/dL Urine Ketones NEGATIVE (NEGATIVE) mg/dL Urine Occult Blood NEGATIVE (NEGATIVE) Urine Nitrite NEGATIVE (NEGATIVE) Urine Bilirubin NEGATIVE (NEGATIVE) Urine Urobilinogen 0.2 (<2.0) EU/dL Ur Leukocyte Esterase NEGATIVE (NEGATIVE) Med Orders - Current: Current Medications Acetaminophen (Tylenol) 650 mg PO Q4H PRN PRN Reason: Pain (Mild 1-3)/fever Aspirin (Aspirin) 81 mg PO DAILY [facility] Diltiazem HCl (Cardizem Cd) 240 mg PO DAILY [facility] Last Admin: 10/26/18 10:00 Dose: 240 mg Sodium Chloride (Normal Saline) 1,000 mls @ 50 mls/hr IV ASDIRECTED [facility] Last Infusion: 10/26/18 05:44 Dose: 50 mls/hr Ondansetron HCl (Zofran Odt) 4 mg PO Q4H PRN PRN Reason: nausea, able to take PO Sodium Chloride (Saline Flush) 10 ml FLUSH ASDIRECTED PRN PRN Reason: Keep Vein Open Sodium Chloride (Saline Flush) 2.5 ml FLUSH ASDIRECTED PRN PRN Reason: Keep Vein Open Discontinued Medications Aspirin (Aspirin) 324 mg PO ONETIME ONE Stop: 10/26/18 04:58 Aspirin (Aspirin) 243 mg PO ONETIME ONE Stop: 10/26/18 05:03 Last Admin: 10/26/18 05:10 Dose: 243 mg Diltiazem HCl (Diltiazem) 10 mg IVPUSH ONETIME ONE Stop: 10/26/18 05:03 Last Admin: 10/26/18 05:12 Dose: 10 mg Diltiazem HCl (Diltiazem) 10 mg IVPUSH ONETIME ONE Stop: 10/26/18 05:28 Last Admin: 10/26/18 05:31 Dose: 10 mg Enoxaparin Sodium (Lovenox) 100 mg SUBCUT ONETIME ONE Stop: 10/26/18 05:04 Last Admin: 10/26/18 05:15 Dose: 100 mg Enoxaparin Sodium (Lovenox) 40 mg SUBCUT Q24H [facility] Last Admin: 10/26/18 09:59 Dose: Not Given
[2018-10-26 12:47] VITALS: BP 128/86
[2018-10-27] MEDS ORDERED: Aspirin 81 MG Tab.Chew PO SCH (09:00)
--- NOTE | 2018-10-28 17:56 | ECHO ---
The echocardiogram report can be seen in this patient's EMR (Electronic Medical Record) in the Reports section. The echocardiogram report has also been scanned into PACS and can be seen there as well. OTTO
== END 2018-10-26 12:50 | disposition home or self-care (01) ==
LOC: MW.ED 04:55 → MW.MS 05:44
PROVIDERS: ADMIT Internal Medicine; ATTEND Internal Medicine
DX: I48.91 Unspecified atrial fibrillation (principal); Z79.899 Other long term (current) drug therapy; Z79.82 Long term (current) use of aspirin
CPT/HCPCS: 36415; 71045; 80053; 80061; 81003; 83036; 84443; 84484; 85025; 85610; 93005; 93306; 96361; 96372; 96374; 99285; A9270; G0378; J1650; J3490; J7040

== ENCOUNTER 2019-05-16 06:34 | Observation (INO) | payer BC ==
[2019-05-16] MEDS ORDERED: Diltiazem 25 MG/5 ML SDV IVPUSH ONE (06:38)
[2019-05-16] MEDS ORDERED: Diltiazem 25 MG/5 ML SDV ONE (06:39)
[2019-05-16 07:06] LABS: BLOOD UREA NITROGEN,BUN 11 mg/dL (7.0-18.0); CARBON DIOXIDE,CO2 28.1 mmol/L (21.0-32.0); CHLORIDE,CL 106 mmol/L (98-107); GLUCOSE RANDOM 101 mg/dL (74-106); POTASSIUM,K 3.1 mmol/L (3.5-5.1); SODIUM,NA 143 mmol/L (136-148)
--- NOTE | 2019-05-16 08:57 | CR ---
Chest: Portable view of the chest was obtained. Comparison: Prior chest x-ray of 10/26/18. Heart size and mediastinum are normal. Lungs show no acute parenchymal change. Bony structures are grossly intact. Impression: 1. Nothing acute is appreciated on portable chest x-ray. Diagnostic code #1 Study was dictated in [place] Standard Time
[2019-05-16] MEDS ORDERED: Aspirin 81 MG Tab.Chew PO ONE (10:22)
--- NOTE | 2019-05-16 12:00 | EDM.PDOC ---
ED [facility] GENERAL MEDICAL PROBLEM - General Chief Complaint: Cardiovascular Problem Stated Complaint: HEART IN AFIB Time Seen by Provider: 05/16/19 07:31 - History of Present Illness INITIAL COMMENTS - FREE TEXT/NARRATIVE: HPI 58-year-old male with history of A. fib, A. fib with RVR, and reported pSVT on diltiazem presents with approximately one hour of palpitations. Patient is compliant with his home medications and took an additional dose of his (per MAR apparently diltiazem, per patient metoprolol) medications prior to presentation. Denies history of DVT, PE,, abscess, immobilization, trauma, surgery, or calf tenderness or swelling. Otherwise in baseline health. M/S/F/SocHx notable for: please see HPI; remainder reviewed with patient and in chart. ROS: Negative constitutional, eye, cardiovascular, pulmonary, GI, , MSK, skin , neurologic, psychiatric, endocrine unless noted in the HPI. Exam HR 186, RR (pending), BP 148/95, T (pending), SaO2 95% on room air. Gen: Pleasant, non-toxic appearing, resting comfortably. HEENT: NC, AT, PEERL, EOMI. Resp: Clear to auscultation bilaterally, normal work of breathing, no accessory muscle usage. Card: Regular rate and rhythm with no murmurs, rubs, or gallops, extremities warm and well perfused. GI: Non-tender to palpation throughout all quadrants, no focal tenderness at McBurney's point, negative Mo's sign, non-distended, no rebound or guarding. : No suprapubic tenderness to palpation. MSK: No visible deformities, strength and tone without visually appreciable deficit. Skin: Normal color with no visible lesions. Neuro: alert and oriented 3, no facial asymmetry, vision and hearing WNL. Psych: Mood and affect appropriate. Labs / Imaging: influenza A & B negative. WBC 7.36, HB 16.1, INR 1.03, sodium 143, potassium 3.1. troponin (6:43 AM) <0.050, troponin (9:40 AM) 0.271. CXR: nothing acute is appreciated on portable chest x-ray. EKG (6:39 AM): supraventricular tachycardia at 188 bpm, nonspecific ST segment changes. EKG (6:53 AM): SR 82 bpm, no KS segment depressions, KS hundred 74 ms, QRS 90 ms , nonspecific ST segment depressions, no reciprocal changes, no ST segment elevations, no hyperacute T waves. No prior ECGs available for comparison at the time of the patients ED evaluation. EKG (9:40 AM): SR 56 bpm, no ST segment elevations or depressions. MDM Previous chart, nursing note, labs, imaging, and vitals reviewed. A: 58-year-old male with history of A. fib, A. fib with RVR, and reported pSVT on diltiazem presents with approximately one hour of palpitations. DDx: atrial flutter, SVT, PSVT, electrolyte abnormalities, PE, ACS, pericarditis , myocarditis. Evaluation: patient well-appearing, screening labs ordered by prior provider, immediately prior to my evaluation the patient converted to a sinus rhythm ( verify by ECG), had resolution symptoms. ECG is without evidence of features suggestive of pericarditis or myocarditis. However nonspecific ST segment depressions without reciprocal changes were noted. The initial troponin is negative, and the patient was without chest pain or shortness of breath. Given these nonspecific changes on ECG the patients For observation, approximately 3 hours later a repeat ECG and troponin were obtained. The ECG had resolution the ST segment depressions and was without discernible abnormality, however the patients troponin was positive at 0.271. The patient made asymptomatic throughout. Patient was given an aspirin . Suspect NSTEMI secondary to demand, however this is tentative at the present time. Patient currently takes daily aspirin for his intermittent arrhythmia, further anticoagulation consideration deferred to the accepting physician. As discussed with the insemination worker on-call , patient is appropriate for care at this facility. 3rd troponin pending at time of admission. Impression: arrhythmia, NSTEMI. (please reference below for remainder of encounter information) Critical Care Time Organ system(s): Cardiovascular Intervention: Assessment of the patient, interpretation of studies, communication related to patient care. Time: 60 minutes were spent directly related to patient care exclusive of separately billed procedures. - Related Data Allergies Allergy/AdvReac Type Severity Reaction Status Date / Time No Known Allergies Allergy Verified 10/26/18 06:42 Home Meds: Home Meds Diltiazem [Cardizem CD] 240 mg PO DAILY 03/14/17 [History] Aspirin 1 tab PO DAILY 10/26/18 [History] Past Medical History Cardiovascular History: Reports: Afib - Infectious Disease History Infectious Disease History: Reports: Chicken Pox, Measles, Mumps - Past Surgical History HEENT Surgical History: Reports: Adenoidectomy, Tonsillectomy Social & Family History - Family History Family Medical History: Noncontributory - Tobacco Use Smoking Status *Q: Heavy Tobacco Smoker Years of Tobacco use: 50 Packs/Tins Daily: 2 - Caffeine Use Caffeine Use: Reports: Soda - Recreational Drug Use Recreational Drug Use: No ED ROS GENERAL - Review of Systems Review Of Systems: See Below ED EXAM, GENERAL - Physical Exam Exam: See Below Course - Vital Signs Last Recorded V/S: Last Vital Signs Temp 36.4 C 05/16/19 10:25 Pulse 55 L 05/16/19 10:25 Resp 16 05/16/19 10:25 BP 146/93 H 05/16/19 10:25 Pulse Ox 97 05/16/19 10:25 - Orders/Labs/Meds Orders: Active Orders 24 hr Category Date Time Status EKG 12 Lead [EKG Documentation Completion] [RC] STAT Care 05/16/19 07:08 Active EKG 12 Lead [EKG Documentation Completion] [RC] STAT Care 05/16/19 09:20 Active EKG Documentation Completion [RC] STAT Care 05/16/19 06:38 Active TROPONIN I [CHEM] Stat Lab 05/16/19 11:40 Ordered Labs: Laboratory Tests 05/16/19 05/16/19 05/16/19 Range/Units 06:43 06:43 06:43 WBC 7.36 (4.0-11.0) K/uL RBC 4.99 (4.50-5.90) M/uL Hgb 16.1 (13.0-17.0) g/dL Hct 48.1 (38.0-50.0) % MCV 96.4 (80.0-98.0) fL MCH 32.3 H (27.0-32.0) pg MCHC 33.5 (31.0-37.0) g/dL RDW Std Deviation 48.4 (28.0-62.0) fl RDW Coeff of Reji 14 (11.0-15.0) % Plt Count 212 (150-400) K/uL MPV 9.60 (7.40-12.00) fL Neut % (Auto) 48.8 (48.0-80.0) % Lymph % (Auto) 36.7 (16.0-40.0) % [place] % (Auto) 12.6 (0.0-15.0) % Eos % (Auto) 1.6 (0.0-7.0) % Baso % (Auto) 0.3 (0.0-1.5) % Neut # (Auto) 3.6 (1.4-5.7) K/uL Lymph # (Auto) 2.7 H (0.6-2.4) K/uL [place] # (Auto) 0.9 H (0.0-0.8) K/uL Eos # (Auto) 0.1 (0.0-0.7) K/uL Baso # (Auto) 0.0 (0.0-0.1) K/uL Nucleated RBC % 0.0 /100WBC Nucleated RBCs # 0 K/uL INR 1.03 Sodium 143 (136-148) mmol/L Potassium 3.1 L (3.5-5.1) mmol/L Chloride 106 (98-107) mmol/L Carbon Dioxide 28.1 (21.0-32.0) mmol/L BUN 11 (7.0-18.0) mg/dL Creatinine 0.9 (0.8-1.3) mg/dL Est Cr Clr Drug Dosing TNP Estimated GFR (MDRD) > 60.0 ml/min Glucose 101 (74-106) mg/dL Calcium 9.1 (8.5-10.1) mg/dL Troponin I (0.000-0.056) ng/mL 05/16/19 05/16/19 Range/Units 06:43 09:40 WBC (4.0-11.0) K/uL RBC (4.50-5.90) M/uL Hgb (13.0-17.0) g/dL Hct (38.0-50.0) % MCV (80.0-98.0) fL MCH (27.0-32.0) pg MCHC (31.0-37.0) g/dL RDW Std Deviation (28.0-62.0) fl RDW Coeff of Reji (11.0-15.0) % Plt Count (150-400) K/uL MPV (7.40-12.00) fL Neut % (Auto) (48.0-80.0) % Lymph % (Auto) (16.0-40.0) % [place] % (Auto) (0.0-15.0) % Eos % (Auto) (0.0-7.0) % Baso % (Auto) (0.0-1.5) % Neut # (Auto) (1.4-5.7) K/uL Lymph # (Auto) (0.6-2.4) K/uL [place] # (Auto) (0.0-0.8) K/uL Eos # (Auto) (0.0-0.7) K/uL Baso # (Auto) (0.0-0.1) K/uL Nucleated RBC % /100WBC Nucleated RBCs # K/uL INR Sodium (136-148) mmol/L Potassium (3.5-5.1) mmol/L Chloride (98-107) mmol/L Carbon Dioxide (21.0-32.0) mmol/L BUN (7.0-18.0) mg/dL Creatinine (0.8-1.3) mg/dL Est Cr Clr Drug Dosing Estimated GFR (MDRD) ml/min Glucose (74-106) mg/dL Calcium (8.5-10.1) mg/dL Troponin I < 0.050 0.271 H* (0.000-0.056) ng/mL Meds: Medications Discontinued Medications Generic Name Dose Route Start Last Admin Trade Name Freq PRN Reason Stop Dose Admin Aspirin 324 mg 05/16/19 10:22 05/16/19 10:37 Aspirin PO 05/16/19 10:23 324 mg ONETIME ONE Administration Diltiazem HCl 20 mg 03/03/20 06:38 05/16/19 07:46 Diltiazem IVPUSH 05/16/19 06:39 Not Given ONETIME ONE Diltiazem HCl Confirm 05/16/19 06:39 05/16/19 07:10 Diltiazem Administered 05/16/19 06:40 Not Given Dose 25 mg .ROUTE .STK-MED ONE Departure - Departure Time of Disposition: 11:59 Disposition: Admitted As Inpatient 64 Clinical Impression: NSTEMI (non-ST elevated myocardial infarction) Referrals: PCP,None [Primary Care Provider] - Sepsis Event Note - Evaluation Sepsis Screening Result: No Definite Risk - Focused Exam Vital Signs: Vital Signs Temp Pulse Resp BP Pulse Ox 05/16/19 10:25 36.4 C 55 L 16 146/93 H 97 05/16/19 06:46 186 H 148/95 H 95 Date Exam was Performed: 05/16/19 Time Exam was Performed: 11:59 - My Orders Last 24 Hours: My Active Orders 05/16/19 07:08 EKG 12 Lead [EKG Documentation Completion] [RC] STAT 05/16/19 09:20 EKG 12 Lead [EKG Documentation Completion] [RC] STAT 05/16/19 11:40 TROPONIN I [CHEM] Stat - Assessment/Plan Last 24 Hours: My Active Orders 05/16/19 07:08 EKG 12 Lead [EKG Documentation Completion] [RC] STAT 05/16/19 09:20 EKG 12 Lead [EKG Documentation Completion] [RC] STAT 05/16/19 11:40 TROPONIN I [CHEM] Stat
[2019-05-16] MEDS ORDERED: Enoxaparin 100 MG/1 ML Syringe SUBCUT ONE (13:14)
[2019-05-16] MEDS ORDERED: Potassium Chloride 20 MEQ Tab.ER PO ONE (13:14)
[2019-05-16] MEDS ORDERED: Heparin Sodium 5,000 Units/ML Vial IVPUSH ONE (13:41)
[2019-05-16] MEDS ORDERED: Acetaminophen 325 MG Tab PO PRN (13:43)
[2019-05-16] MEDS ORDERED: Ondansetron 4 MG/2 ML SDV IVPUSH PRN (13:43)
[2019-05-16] MEDS ORDERED: Sodium Chloride 0.9% 2.5 ML Syringe FLUSH PRN (13:43)
[2019-05-16] MEDS ORDERED: Heparin Sod,Pork In 0.45% Nacl 25,000 UNIT/500 ML IV.SOLN IV SCH (13:45)
--- NOTE | 2019-05-16 13:53 | PCM.HP.2 ---
H&P History of Present Illness - General Date of Service: 05/16/19 Admit Problem/Dx: Admission Diagnosis/Problem Admission Diagnosis/Problem SVT with elevated troponin Source of Information: Patient, Family ( at bedside) History Limitations: Reports: No Limitations - History of Present Illness Initial Comments - Free Text/Narative: This 58 year old male with pmh of Afib and tobacco abuse presented to the ED with complaints of palpitations x 1 hour this morning. He reports about he woke up and took his morning medication, Diltiazem and ASA. He reports the palpitations were noted in his chest with fullness in his ears. No chest pain or SOB. No headache or lightheadedness. No Dizziness. He then decided to take another dose of Diltiazem, total doseage 480 mg today. No change noted in palpitations, so he came to the ED. He was noted on EKG to have SVT 180s, he converted without medications. He continues to deny chest pain or SOB. Otherwise no other concerns. he reports he has been eating and drinking well, no diarrhea or vomiting. No fevers or chills. No neurological deficits. He reports he smokes 2 ppd, rare to no alcohol use and no recreational drug use. In the ED CBC WNL. BMP revealed hypokalemia 3.1 magnesium normal. Troponin negative initially, elevated to 0.271, then 0.684. CXR negative. EKGs showed initially SVT rate 180s, SVT resolved and it showed ST depression in lateral leads, which then resolved with SR EKG, no ST changes. Dr Farris consulted in ED. He will be admitted observation for SVT, monitoring troponins. PCP, Dr Fields Paster Operator Dr Farris - Related Data Allergies/Adverse Reactions: Allergies Allergy/AdvReac Type Severity Reaction Status Date / Time No Known Allergies Allergy Verified 05/16/19 14:05 Home Medications: Home Meds Diltiazem [Cardizem CD] 240 mg PO DAILY 03/14/17 [History] Aspirin 1 tab PO DAILY 10/26/18 [History] Past Medical History Cardiovascular History: Reports: Afib. Denies: Blood Clots/VTE/DVT, CAD, Heart Failure, High Cholesterol, Hypertension, HI, Stents Respiratory History: Reports: None. Denies: Asthma, COPD, PE Gastrointestinal History: Reports: None. Denies: Bowel Obstruction, GERD Musculoskeletal History: Reports: None Endocrine/Metabolic History: Denies: Diabetes, Type II, Hyperthyroidism, Hypothyroidism - Infectious Disease History Infectious Disease History: Reports: Chicken Pox, Measles, Mumps - Past Surgical History HEENT Surgical History: Reports: Adenoidectomy, Tonsillectomy Social & Family History - Family History Family Medical History: Noncontributory - Tobacco Use Smoking Status *Q: Heavy Tobacco Smoker Years of Tobacco use: 50 Packs/Tins Daily: 2 - Caffeine Use Caffeine Use: Reports: Soda - Alcohol Use Alcohol Use History: No Alcohol Use Frequency: Rarely - Recreational Drug Use Recreational Drug Use: No - Living Situation & Occupation Living situation: Reports: Occupation: Employed H&P Review of Systems - Review of Systems: Review Of Systems: See Below General: Reports: No Symptoms. Denies: Fever, Chills, Malaise, Weakness HEENT: Reports: No Symptoms. Denies: Headaches, Sinus Congestion, Sore Throat Pulmonary: Reports: No Symptoms. Denies: Shortness of Breath, Cough, Sputum Cardiovascular: Reports: Palpitations. Denies: Chest Pain, Edema, Lightheadedness Gastrointestinal: Reports: No Symptoms. Denies: Abdominal Pain, Black Stool, Bloody Stool, Nausea, Vomiting Genitourinary: Reports: No Symptoms. Denies: Dysuria, Frequency, Urgency Musculoskeletal: Reports: No Symptoms Skin: Reports: No Symptoms Psychiatric: Reports: No Symptoms Neurological: Reports: No Symptoms Hematologic/Lymphatic: Reports: No Symptoms Immunologic: Reports: No Symptoms Exam - Exam Exam: See Below - Vital Signs Vital Signs: Last Vital Signs Temp 97.6 F 05/16/19 10:25 Pulse 52 L 05/16/19 12:58 Resp 16 05/16/19 10:25 BP 138/80 05/16/19 12:58 Pulse Ox 95 05/16/19 12:58 Weight: 99.79 kg - Exam General: Alert, Oriented, Cooperative HEENT: Conjunctiva Clear, Mucosa Moist & [place], Posterior Pharynx Clear Neck: Supple, Trachea Midline. No: JVD Lungs: Clear to Auscultation, Normal Respiratory Effort Cardiovascular: Regular Rate, Regular Rhythm, Normal S1, Normal S2. No: Irregular Rhythm, Tachycardia, Systolic Murmur GI/Abdominal Exam: Normal Bowel Sounds, Soft Back Exam: Normal Inspection, Full Range of Motion Extremities: Normal Inspection, Normal Range of Motion, Non-Tender, No Pedal Edema Neuro Extensive - Mental Status: Alert, Oriented x3 Neuro Extensive - Motor, Sensory, Reflexes: CN II-XII Intact Psychiatric: Alert, Normal Affect, Normal Mood - Patient Data Lab Results Last 24 hrs: Laboratory Results - last 24 hr 05/16/19 05/16/19 05/16/19 Range/Units 06:43 06:43 06:43 WBC 7.36 (4.0-11.0) K/uL RBC 4.99 (4.50-5.90) M/uL Hgb 16.1 (13.0-17.0) g/dL Hct 48.1 (38.0-50.0) % MCV 96.4 (80.0-98.0) fL MCH 32.3 H (27.0-32.0) pg MCHC 33.5 (31.0-37.0) g/dL RDW Std Deviation 48.4 (28.0-62.0) fl RDW Coeff of Reji 14 (11.0-15.0) % Plt Count 212 (150-400) K/uL MPV 9.60 (7.40-12.00) fL Neut % (Auto) 48.8 (48.0-80.0) % Lymph % (Auto) 36.7 (16.0-40.0) % [place] % (Auto) 12.6 (0.0-15.0) % Eos % (Auto) 1.6 (0.0-7.0) % Baso % (Auto) 0.3 (0.0-1.5) % Neut # (Auto) 3.6 (1.4-5.7) K/uL Lymph # (Auto) 2.7 H (0.6-2.4) K/uL [place] # (Auto) 0.9 H (0.0-0.8) K/uL Eos # (Auto) 0.1 (0.0-0.7) K/uL Baso # (Auto) 0.0 (0.0-0.1) K/uL Nucleated RBC % 0.0 /100WBC Nucleated RBCs # 0 K/uL INR 1.03 Sodium 143 (136-148) mmol/L Potassium 3.1 L (3.5-5.1) mmol/L Chloride 106 (98-107) mmol/L Carbon Dioxide 28.1 (21.0-32.0) mmol/L BUN 11 (7.0-18.0) mg/dL Creatinine 0.9 (0.8-1.3) mg/dL Est Cr Clr Drug Dosing TNP Estimated GFR (MDRD) > 60.0 ml/min Glucose 101 (74-106) mg/dL Calcium 9.1 (8.5-10.1) mg/dL Magnesium (1.8-2.4) mg/dL Troponin I (0.000-0.056) ng/mL 05/16/19 05/16/19 05/16/19 Range/Units 06:43 09:40 11:36 WBC (4.0-11.0) K/uL RBC (4.50-5.90) M/uL Hgb (13.0-17.0) g/dL Hct (38.0-50.0) % MCV (80.0-98.0) fL MCH (27.0-32.0) pg MCHC (31.0-37.0) g/dL RDW Std Deviation (28.0-62.0) fl RDW Coeff of Reji (11.0-15.0) % Plt Count (150-400) K/uL MPV (7.40-12.00) fL Neut % (Auto) (48.0-80.0) % Lymph % (Auto) (16.0-40.0) % [place] % (Auto) (0.0-15.0) % Eos % (Auto) (0.0-7.0) % Baso % (Auto) (0.0-1.5) % Neut # (Auto) (1.4-5.7) K/uL Lymph # (Auto) (0.6-2.4) K/uL [place] # (Auto) (0.0-0.8) K/uL Eos # (Auto) (0.0-0.7) K/uL Baso # (Auto) (0.0-0.1) K/uL Nucleated RBC % /100WBC Nucleated RBCs # K/uL INR Sodium (136-148) mmol/L Potassium (3.5-5.1) mmol/L Chloride (98-107) mmol/L Carbon Dioxide (21.0-32.0) mmol/L BUN (7.0-18.0) mg/dL Creatinine (0.8-1.3) mg/dL Est Cr Clr Drug Dosing Estimated GFR (MDRD) ml/min Glucose (74-106) mg/dL Calcium (8.5-10.1) mg/dL Magnesium (1.8-2.4) mg/dL Troponin I < 0.050 0.271 H* 0.682 H* (0.000-0.056) ng/mL 05/16/19 Range/Units 11:36 WBC (4.0-11.0) K/uL RBC (4.50-5.90) M/uL Hgb (13.0-17.0) g/dL Hct (38.0-50.0) % MCV (80.0-98.0) fL MCH (27.0-32.0) pg MCHC (31.0-37.0) g/dL RDW Std Deviation (28.0-62.0) fl RDW Coeff of Reji (11.0-15.0) % Plt Count (150-400) K/uL MPV (7.40-12.00) fL Neut % (Auto) (48.0-80.0) % Lymph % (Auto) (16.0-40.0) % [place] % (Auto) (0.0-15.0) % Eos % (Auto) (0.0-7.0) % Baso % (Auto) (0.0-1.5) % Neut # (Auto) (1.4-5.7) K/uL Lymph # (Auto) (0.6-2.4) K/uL [place] # (Auto) (0.0-0.8) K/uL Eos # (Auto) (0.0-0.7) K/uL Baso # (Auto) (0.0-0.1) K/uL Nucleated RBC % /100WBC Nucleated RBCs # K/uL INR Sodium (136-148) mmol/L Potassium (3.5-5.1) mmol/L Chloride (98-107) mmol/L Carbon Dioxide (21.0-32.0) mmol/L BUN (7.0-18.0) mg/dL Creatinine (0.8-1.3) mg/dL Est Cr Clr Drug Dosing Estimated GFR (MDRD) ml/min Glucose (74-106) mg/dL Calcium (8.5-10.1) mg/dL Magnesium 2.2 (1.8-2.4) mg/dL Troponin I (0.000-0.056) ng/mL Result Diagrams: 05/16/19 06:43 05/16/19 06:43 Sepsis Event Note - Evaluation Sepsis Screening Result: No Definite Risk - Focused Exam Vital Signs: Vital Signs Temp Pulse Resp BP Pulse Ox 05/16/19 12:58 52 L 138/80 95 05/16/19 11:23 51 L 140/91 H 96 05/16/19 11:08 56 L 149/90 H 96 05/16/19 10:53 53 L 153/99 H 98 05/16/19 10:25 97.6 F 55 L 16 146/93 H 97 05/16/19 06:46 186 H 148/95 H 95 Date Exam was Performed: 05/16/19 Time Exam was Performed: 13:48 - Problem List (1) SVT (supraventricular tachycardia) SNOMED Code(s): 0787592 ICD Code: I47.1 - SUPRAVENTRICULAR TACHYCARDIA Status: Acute Current Visit: Yes (2) Elevated troponin SNOMED Code(s): 607682666, 030706162, 386827130 ICD Code: R79.89 - OTHER SPECIFIED ABNORMAL FINDINGS OF BLOOD CHEMISTRY Status: Acute Current Visit: Yes (3) Atrial fibrillation SNOMED Code(s): 18846408 ICD Code: I48.91 - UNSPECIFIED ATRIAL FIBRILLATION Status: Chronic Current Visit: No (4) Smoker SNOMED Code(s): 34768653 ICD Code: F17.200 - NICOTINE DEPENDENCE, UNSPECIFIED, UNCOMPLICATED Status : Chronic Current Visit: No Problem List Initiated/Reviewed/Updated: Yes Orders Last 24hrs: Active Orders 24 hr Category Date Time Status Admission Status [Patient Status] [ADT] Stat ADT 05/16/19 12:34 Active EKG 12 Lead [EKG Documentation Completion] [RC] STAT Care 05/16/19 07:08 Active EKG 12 Lead [EKG Documentation Completion] [RC] STAT Care 05/16/19 09:20 Active EKG Documentation Completion [RC] STAT Care 05/16/19 06:38 Active Intake and Output [RC] QSHIFT Care 05/16/19 13:43 Ordered Notify Provider Consults [RC] ASDIRECTED Care 05/16/19 13:46 Ordered Oxygen Therapy [RC] PRN Care 05/16/19 13:43 Ordered Telemetry Monitoring [Cardiac Monitoring] [RC] Q8HR Care 05/16/19 14:00 Active Up With Assistance [RC] ASDIRECTED Care 05/16/19 13:43 Ordered VTE/DVT Education [RC] PER UNIT ROUTINE Care 05/16/19 13:43 Ordered Vital Signs [RC] Q4H Care 05/16/19 13:43 Ordered Consult to Physician [CONS] Routine Cons 05/16/19 13:43 Ordered Heart Healthy Diet [DIET] Diet 05/16/19 Lunch Ordered BASIC METABOLIC PANEL,BMP [CHEM] AM Lab 05/17/19 05:11 Ordered CBC WITH AUTO DIFF [HEME] AM Lab 05/17/19 05:11 Ordered GLYCOSYLATED HEMOGLOBIN,HGBA1C [CHEM] Routine Lab 05/16/19 13:43 Ordered LIPID PANEL [CHEM] Routine Lab 05/17/19 13:46 Ordered PTT,PARTIAL THROMBOPLSTIN TIME [COAG] Stat Lab 05/16/19 13:41 Ordered TROPONIN I [CHEM] Routine Lab 05/16/19 14:30 Ordered TSH [CHEM] Routine Lab 05/16/19 13:43 Ordered Acetaminophen [Tylenol] Med 05/16/19 13:43 Ordered 650 mg PO Q4H PRN Heparin Sod,Pork In 0.45% Nacl [Heparin-1/2Ns 25,000 Med 05/16/19 13:45 Ordered Units/500] 25,000 unit in 500 ml IV TITRATE Heparin Sodium Med 05/16/19 13:41 Once 4,000 units IVPUSH .BOLUS ONE Ondansetron [Zofran] Med 05/16/19 13:43 Ordered 4 mg IVPUSH Q4H PRN Sodium Chloride 0.9% [Saline Flush] Med 05/16/19 13:43 Ordered 2.5 ml FLUSH ASDIRECTED PRN Saline Lock Insert [OM.PC] Routine Oth 05/16/19 13:43 Ordered Resuscitation Status Routine Resus Stat 05/16/19 13:43 Ordered Medication Orders Acetaminophen (Tylenol) 650 mg PO Q4H PRN PRN Reason: Pain (Mild 1-3)/fever Heparin Sodium (Porcine) (Heparin Sodium) 4,000 units IVPUSH .BOLUS ONE Stop: 05/16/19 13:42 Heparin Sodium/Sodium Chloride (Heparin-1/2ns 25,000 Units/500) 25,000 unit in 500 mls @ 23.95 mls/hr IV TITRATE ERIKA; Protocol Ondansetron HCl (Zofran) 4 mg IVPUSH Q4H PRN PRN Reason: Nausea Sodium Chloride (Saline Flush) 2.5 ml FLUSH ASDIRECTED PRN PRN Reason: Keep Vein Open Assessment/Plan Comment:: This 58 year old male admitted for SVT with elevated troponin 1. SVT- resolved Hx Afib - resolved in ED without intervention, - Troponin elevated on second and third draw, reaching 0.684. Could be secondary leak from SVT. Continue to monitor, Recheck Q6h x 2. If elevates above 1 likely transfer to higher level of care for NSTEMI - Dr Farris consulted - Heparin Gtt for now - Monitor on telemetry - Obtain lipid, A1c and TSH - Continue Diltiazem - Counseled on tobacco cessation >5 minutes. Diet: Heart healthy VTE prophylaxis: Heparin Consults: Dr Farris CODE Status: Full Code Disposition: 1-2 days - Mortality Measure Prognosis:: Good
[2019-05-16 14:19] LABS: HEMOGLOBIN A1C 5.5 % (4.5-6.2)
[2019-05-17 06:09] LABS: BLOOD UREA NITROGEN,BUN 10 mg/dL (7.0-18.0); CARBON DIOXIDE,CO2 26.1 mmol/L (21.0-32.0); CHLORIDE,CL 108 mmol/L (98-107); GLUCOSE RANDOM 91 mg/dL (74-106); SODIUM,NA 142 mmol/L (136-148)
[2019-05-17] MEDS ORDERED: Aspirin 81 MG Tab.Chew PO SCH (09:00)
[2019-05-17] MEDS ORDERED: Diltiazem 120 MG Cap.CD PO SCH (09:00)
--- NOTE | 2019-05-17 09:36 | PCM.DCSUM1 ---
Discharge Summary - Hospital Course Brief History: This 58 year old male with pmh of Afib and tobacco abuse presented to the ED with complaints of palpitations x 1 hour this morning. He reports about he woke up and took his morning medication, Diltiazem and ASA. He reports the palpitations were noted in his chest with fullness in his ears. No chest pain or SOB. No headache or lightheadedness. No Dizziness. He then decided to take another dose of Diltiazem, total doseage 480 mg today. No change noted in palpitations, so he came to the ED. He was noted on EKG to have SVT 180s, he converted without medications. He continues to deny chest pain or SOB. Otherwise no other concerns. he reports he has been eating and drinking well, no diarrhea or vomiting. No fevers or chills. No neurological deficits. He reports he smokes 2 ppd, rare to no alcohol use and no recreational drug use. In the ED CBC WNL. BMP revealed hypokalemia 3.1 magnesium normal. Troponin negative initially, elevated to 0.271, then 0.684. CXR negative. EKGs showed initially SVT rate 180s, SVT resolved and it showed ST depression in lateral leads, which then resolved with SR EKG, no ST changes. Dr Farris consulted in ED. He will be admitted observation for SVT, monitoring troponins. PCP, Dr Fields. Community Engagement Specialist Dr Farris Diagnosis: Stroke: No - Discharge Data Discharge Date: 05/17/19 Discharge Disposition: Home, Self-Care 01 Condition: Good - Referral to Home Health Primary Care Physician: PCP None - Discharge Diagnosis/Problem(s) (1) SVT (supraventricular tachycardia) SNOMED Code(s): 1896851 ICD Code: I47.1 - SUPRAVENTRICULAR TACHYCARDIA Status: Acute Current Visit: Yes (2) Elevated troponin SNOMED Code(s): 085025889, 649373353, 771814469 ICD Code: R79.89 - OTHER SPECIFIED ABNORMAL FINDINGS OF BLOOD CHEMISTRY Status: Acute Current Visit: Yes (3) Atrial fibrillation SNOMED Code(s): 63223303 ICD Code: I48.91 - UNSPECIFIED ATRIAL FIBRILLATION Status: Chronic Current Visit: No (4) Smoker SNOMED Code(s): 33866132 ICD Code: F17.200 - NICOTINE DEPENDENCE, UNSPECIFIED, UNCOMPLICATED Status : Chronic Current Visit: No - Patient Summary/Data Consults: Consultations 05/16/19 13:43 Consult to Physician [CONS] Routine - Patient Instructions Diet: Heart Healthy Diet, Regular Diet as Tolerated Activity: As Tolerated, No Strenuous Activities Driving: May Drive Today Showering/Bathing: May Shower Notify Provider of: Fever, Increased Pain, Swelling and Redness, Drainage, Nausea and/or Vomiting Other/Special Instructions: Smoking cessation, highly encouraged to stop. Start by cutting down slowly - Discharge Plan *PRESCRIPTION DRUG MONITORING PROGRAM REVIEWED*: Not Applicable *COPY OF PRESCRIPTION DRUG MONITORING REPORT IN PATIENT AUDREY: Not Applicable Home Medications: Home Meds Diltiazem [Cardizem CD] 240 mg PO DAILY 03/14/17 [History] Aspirin 1 tab PO DAILY 10/26/18 [History] Oxygen Therapy Mode: Room Air Patient Handouts: Supraventricular Tachycardia, Adult, [id number] Referrals: Tariq Farris MD [Physician] - 06/08/19 1:00 pm Angel Fields MD [Physician] - 05/24/19 9:30 am - Discharge Summary/Plan Comment DC Time >30 min.: No Discharge Summary/Plan Comment: Admitting Diagnoses: SVT Elevated troponin Discharge Diagnoses: SVT Other PMH: Afib Tobacco abuse Noel was admitted secondary to palpitations he felt at home. He reports He took an extra dose of Diltiazem at home prior to the ED. Once in the ED he spontaneously converted to SR. 2nd troponin was elevated, max was 0.684. Dr Farris was consulted, Heparin drip started. Troponins plateaued and started to improve today. No chest pain throughout it all. ECHO pending on discharge. He is bradycardiac this morning [address]s. Dr Farris recommends continuing Diltiazem 240 at home. Conitnue ASA as well. Highly encouraged smoking cessation. Dr Scott will arrange for outpatient stress test. He is to return to ED or clinic if concerns should arise. - Patient Data Vitals - Most Recent: Last Vital Signs Temp 97.9 F 05/17/19 07:49 Pulse 45 L 05/17/19 07:49 Resp 16 05/17/19 07:49 BP 128/70 05/17/19 07:49 Pulse Ox 95 05/17/19 07:49 Weight - Most Recent: 99.79 kg I&O - Last 24 hours: Intake & Output 05/16/19 05/17/19 05/17/19 22:59 06:59 14:59 Intake Total 743 1000 Output Total 600 Balance 743 400 Lab Results - Last 24 hrs: Laboratory Results - last 24 hr 05/16/19 05/16/19 05/16/19 Range/Units 06:43 09:40 11:36 WBC (4.0-11.0) K/uL RBC (4.50-5.90) M/uL Hgb (13.0-17.0) g/dL Hct (38.0-50.0) % MCV (80.0-98.0) fL MCH (27.0-32.0) pg MCHC (31.0-37.0) g/dL RDW Std Deviation (28.0-62.0) fl RDW Coeff of Reji (11.0-15.0) % Plt Count (150-400) K/uL MPV (7.40-12.00) fL Neut % (Auto) (48.0-80.0) % Lymph % (Auto) (16.0-40.0) % [place] % (Auto) (0.0-15.0) % Eos % (Auto) (0.0-7.0) % Baso % (Auto) (0.0-1.5) % Neut # (Auto) (1.4-5.7) K/uL Lymph # (Auto) (0.6-2.4) K/uL [place] # (Auto) (0.0-0.8) K/uL Eos # (Auto) (0.0-0.7) K/uL Baso # (Auto) (0.0-0.1) K/uL Nucleated RBC % /100WBC Nucleated RBCs # K/uL APTT (18.6-31.3) SEC Sodium (136-148) mmol/L Potassium (3.5-5.1) mmol/L Chloride (98-107) mmol/L Carbon Dioxide (21.0-32.0) mmol/L BUN (7.0-18.0) mg/dL Creatinine (0.8-1.3) mg/dL Est Cr Clr Drug Dosing mL/min Estimated GFR (MDRD) ml/min Glucose (74-106) mg/dL Hemoglobin A1c 5.5 (4.5-6.2) % Calcium (8.5-10.1) mg/dL Magnesium (1.8-2.4) mg/dL Troponin I 0.271 H* 0.682 H* (0.000-0.056) ng/mL Triglycerides (0-200) mg/dL Cholesterol (50-200) mg/dL LDL Cholesterol, Calc (60-180) mg/dL VLDL Cholesterol (5-55) mg/dL HDL Cholesterol (40-60) mg/dL Cholesterol/HDL Ratio (3.3-6.0) TSH 3rd Generation (0.36-3.74) uIU/mL 05/16/19 05/16/19 05/16/19 Range/Units 11:36 11:36 14:04 WBC (4.0-11.0) K/uL RBC (4.50-5.90) M/uL Hgb (13.0-17.0) g/dL Hct (38.0-50.0) % MCV (80.0-98.0) fL MCH (27.0-32.0) pg MCHC (31.0-37.0) g/dL RDW Std Deviation (28.0-62.0) fl RDW Coeff of Reji (11.0-15.0) % Plt Count (150-400) K/uL MPV (7.40-12.00) fL Neut % (Auto) (48.0-80.0) % Lymph % (Auto) (16.0-40.0) % [place] % (Auto) (0.0-15.0) % Eos % (Auto) (0.0-7.0) % Baso % (Auto) (0.0-1.5) % Neut # (Auto) (1.4-5.7) K/uL Lymph # (Auto) (0.6-2.4) K/uL [place] # (Auto) (0.0-0.8) K/uL Eos # (Auto) (0.0-0.7) K/uL Baso # (Auto) (0.0-0.1) K/uL Nucleated RBC % /100WBC Nucleated RBCs # K/uL APTT 26.4 (18.6-31.3) SEC Sodium (136-148) mmol/L Potassium (3.5-5.1) mmol/L Chloride (98-107) mmol/L Carbon Dioxide (21.0-32.0) mmol/L BUN (7.0-18.0) mg/dL Creatinine (0.8-1.3) mg/dL Est Cr Clr Drug Dosing mL/min Estimated GFR (MDRD) ml/min Glucose (74-106) mg/dL Hemoglobin A1c (4.5-6.2) % Calcium (8.5-10.1) mg/dL Magnesium 2.2 (1.8-2.4) mg/dL Troponin I (0.000-0.056) ng/mL Triglycerides (0-200) mg/dL Cholesterol (50-200) mg/dL LDL Cholesterol, Calc (60-180) mg/dL VLDL Cholesterol (5-55) mg/dL HDL Cholesterol (40-60) mg/dL Cholesterol/HDL Ratio (3.3-6.0) TSH 3rd Generation 2.10 (0.36-3.74) uIU/mL 05/16/19 05/16/19 05/17/19 Range/Units 15:51 21:50 05:15 WBC 6.01 (4.0-11.0) K/uL RBC 4.66 (4.50-5.90) M/uL Hgb 14.7 (13.0-17.0) g/dL Hct 44.7 (38.0-50.0) % MCV 95.9 (80.0-98.0) fL MCH 31.5 (27.0-32.0) pg MCHC 32.9 (31.0-37.0) g/dL RDW Std Deviation 48.3 (28.0-62.0) fl RDW Coeff of Reji 14 (11.0-15.0) % Plt Count 193 (150-400) K/uL MPV 9.70 (7.40-12.00) fL Neut % (Auto) 49.0 (48.0-80.0) % Lymph % (Auto) 33.4 (16.0-40.0) % [place] % (Auto) 15.6 H (0.0-15.0) % Eos % (Auto) 1.5 (0.0-7.0) % Baso % (Auto) 0.5 (0.0-1.5) % Neut # (Auto) 2.9 (1.4-5.7) K/uL Lymph # (Auto) 2.0 (0.6-2.4) K/uL [place] # (Auto) 0.9 H (0.0-0.8) K/uL Eos # (Auto) 0.1 (0.0-0.7) K/uL Baso # (Auto) 0.0 (0.0-0.1) K/uL Nucleated RBC % 0.0 /100WBC Nucleated RBCs # 0 K/uL APTT (18.6-31.3) SEC Sodium (136-148) mmol/L Potassium (3.5-5.1) mmol/L Chloride (98-107) mmol/L Carbon Dioxide (21.0-32.0) mmol/L BUN (7.0-18.0) mg/dL Creatinine (0.8-1.3) mg/dL Est Cr Clr Drug Dosing mL/min Estimated GFR (MDRD) ml/min Glucose (74-106) mg/dL Hemoglobin A1c (4.5-6.2) % Calcium (8.5-10.1) mg/dL Magnesium (1.8-2.4) mg/dL Troponin I 0.540 H* 0.302 H* (0.000-0.056) ng/mL Triglycerides (0-200) mg/dL Cholesterol (50-200) mg/dL LDL Cholesterol, Calc (60-180) mg/dL VLDL Cholesterol (5-55) mg/dL HDL Cholesterol (40-60) mg/dL Cholesterol/HDL Ratio (3.3-6.0) TSH 3rd Generation (0.36-3.74) uIU/mL 05/17/19 05/17/19 Range/Units 05:15 05:15 WBC (4.0-11.0) K/uL RBC (4.50-5.90) M/uL Hgb (13.0-17.0) g/dL Hct (38.0-50.0) % MCV (80.0-98.0) fL MCH (27.0-32.0) pg MCHC (31.0-37.0) g/dL RDW Std Deviation (28.0-62.0) fl RDW Coeff of Reji (11.0-15.0) % Plt Count (150-400) K/uL MPV (7.40-12.00) fL Neut % (Auto) (48.0-80.0) % Lymph % (Auto) (16.0-40.0) % [place] % (Auto) (0.0-15.0) % Eos % (Auto) (0.0-7.0) % Baso % (Auto) (0.0-1.5) % Neut # (Auto) (1.4-5.7) K/uL Lymph # (Auto) (0.6-2.4) K/uL [place] # (Auto) (0.0-0.8) K/uL Eos # (Auto) (0.0-0.7) K/uL Baso # (Auto) (0.0-0.1) K/uL Nucleated RBC % /100WBC Nucleated RBCs # K/uL APTT (18.6-31.3) SEC Sodium 142 (136-148) mmol/L Potassium 4.0 (3.5-5.1) mmol/L Chloride 108 H (98-107) mmol/L Carbon Dioxide 26.1 (21.0-32.0) mmol/L BUN 10 (7.0-18.0) mg/dL Creatinine 0.9 (0.8-1.3) mg/dL Est Cr Clr Drug Dosing 95.80 mL/min Estimated GFR (MDRD) > 60.0 ml/min Glucose 91 (74-106) mg/dL Hemoglobin A1c (4.5-6.2) % Calcium 8.6 (8.5-10.1) mg/dL Magnesium (1.8-2.4) mg/dL Troponin I 0.161 H* (0.000-0.056) ng/mL Triglycerides 64 (0-200) mg/dL Cholesterol 153 (50-200) mg/dL LDL Cholesterol, Calc 106 (60-180) mg/dL VLDL Cholesterol 12 (5-55) mg/dL HDL Cholesterol 34 L (40-60) mg/dL Cholesterol/HDL Ratio 4.5 (3.3-6.0) TSH 3rd Generation (0.36-3.74) uIU/mL Med Orders - Current: Current Medications Acetaminophen (Tylenol) 650 mg PO Q4H PRN PRN Reason: Pain (Mild 1-3)/fever Aspirin (Aspirin) 81 mg PO DAILY ERIKA Last Admin: 05/17/19 08:57 Dose: 81 mg Diltiazem HCl (Cardizem Cd) 240 mg PO DAILY ERIKA Ondansetron HCl (Zofran) 4 mg IVPUSH Q4H PRN PRN Reason: Nausea Sodium Chloride (Saline Flush) 2.5 ml FLUSH ASDIRECTED PRN PRN Reason: Keep Vein Open Discontinued Medications Aspirin (Aspirin) 324 mg PO ONETIME ONE Stop: 05/16/19 10:23 Last Admin: 05/16/19 10:37 Dose: 324 mg Diltiazem HCl (Diltiazem) 20 mg IVPUSH ONETIME ONE Stop: 05/16/19 06:39 Last Admin: 05/16/19 07:46 Dose: Not Given Diltiazem HCl (Diltiazem) Confirm Administered Dose 25 mg .ROUTE .STK-MED ONE Stop: 05/16/19 06:40 Last Admin: 05/16/19 07:10 Dose: Not Given Enoxaparin Sodium (Lovenox) 100 mg SUBCUT ONETIME ONE Stop: 05/16/19 13:15 Last Admin: 05/16/19 14:46 Dose: Not Given Heparin Sodium (Porcine) (Heparin Sodium) 4,000 units IVPUSH .BOLUS ONE Stop: 05/16/19 13:42 Last Admin: 05/16/19 14:39 Dose: 4,000 units Heparin Sodium/Sodium Chloride (Heparin-1/2ns 25,000 Units/500) 25,000 unit in 500 mls @ 23.95 mls/hr IV TITRATE ERIKA; Protocol Last Admin: 05/16/19 14:39 Dose: 12 units/kg/hr, 23.95 mls/hr Potassium Chloride (Klor-Con M20) 40 meq PO ONETIME ONE Stop: 05/16/19 13:15 Last Admin: 05/16/19 14:38 Dose: 40 meq
[2019-05-17 11:29] VITALS: BP 155/84; PULSE 47
--- NOTE | 2019-05-17 12:09 | CONS ---
DATE OF CONSULTATION: 05/17/2019 DATE OF : 1960 PRIMARY CARE PHYSICIAN: None PCP REASON FOR CONSULTATION: Supraventricular tachycardia and troponin elevation. HISTORY OF PRESENT ILLNESS: This is a 58-year-old male, history of smoker, as well as atrial fibrillation. He presented to the clinic a few years ago, and he is here at this time because of heart palpitations , and he decided to come to emergency room. In the emergency room, he was found to have a heart rate of 188 He is feeling better, so apparently he has converted to sinus rhythm spontaneously and lab work shows mildly elevated troponin and then he was admitted to the hospital for observation. Heparin IV drip was started. PAST MEDICAL HISTORY: Atrial fibrillation and he was noted to have elevated blood pressure as well. ALLERGIES: No known drug allergies. CURRENT MEDICATIONS: Include diltiazem 240, aspirin 81 mg. SOCIAL HISTORY: Current smoker. No drug use. Occasional drinker. FAMILY HISTORY: Father had a history of cardiac disorder. Mother had a history of cardiac disorder. REVIEW OF SYSTEMS: Except indicated in HPI, otherwise has been negative. PHYSICAL EXAMINATION: INITIAL VITAL SIGNS: Initial blood pressure is 148/95, heart rate of 188, O2 saturation is 95% on room air, temperature 97.8, respirations 16. HEENT: No pallor. No jaundice. No JVD. HEART: Normal S1, S2 with tachycardia. ABDOMEN: Soft, nontender. Bowel sounds present. No hepatosplenomegaly. IMAGING DATA: EKG, the first EKG on May 16, 2019, heart rate of 180, it showed SVT with ST depression possibly in V2 through V6, as well as a possible retrograde atrial conduction, and on following ECG after he was converted to sinus rhythm, it showed sinus rhythm, heart rate of 56, WI interval 170, QRS duration is 91, QTc 418. He also had an echocardiogram done last year, which showed ejection fraction of 60% to 65%, trace tricuspid regurgitation. ASSESSMENT AND PLAN: This is a 58-year-old male who has a history of paroxysmal atrial fibrillation, as well as a supraventricular tachycardia, presented with elevation of troponins. Troponin most likely demanding from supraventricular tachycardia. Right now, troponin the 3rd level was coming down to 0.5, and now coming down to 0.3, and he also denied chest pain. I recommended to stop the heparin and continue aspirin, as well as the diltiazem. I am not going to increase the diltiazem because of his low heart rate. I recommended to him he should have EP study, as well as ablation to be considered because it has seemed he came into the hospital for the atrial fibrillation 3 to 4 times over the past 5 years. He should consider the atrial fibrillation ablation, as well as supraventricular tachycardia ablation. He probably needs a stress test regarding the mildly elevated troponin, probably demand ischemia. BETTINA / KADI /[id number]
--- NOTE | 2019-05-19 15:40 | ECHO ---
The echocardiogram report can be seen in this patient's EMR (Electronic Medical Record) in the REPORTS section. The echocardiogram report has also been scanned into PACS and can be seen there as well. OTTO
== END 2019-05-17 11:30 | disposition home or self-care (01) ==
LOC: MW.ED 06:34 → MW.MS 13:25
PROVIDERS: ADMIT Internal Medicine; ATTEND Internal Medicine
DX: I47.1 Supraventricular tachycardia (principal); I48.0 Paroxysmal atrial fibrillation; E87.6 Hypokalemia; F17.210 Nicotine dependence, cigarettes, uncomplicated; Z79.82 Long term (current) use of aspirin
CPT/HCPCS: 36415; 71045; 80048; 80061; 83036; 83735; 84443; 84484; 85025; 85610; 85730; 93005; 93306; 96365; 96366; 99291; A9270; G0378; J1644; 99284

== ENCOUNTER 2021-06-22 00:03 | Emergency (ER) | payer BC ==
[2021-06-22] MEDS ORDERED: Adenosine 6 MG/2 ML SDV ONE (00:13)
[2021-06-22 00:39] LABS: BLOOD UREA NITROGEN,BUN 25 mg/dL (7.0-18.0); CARBON DIOXIDE,CO2 21.3 mmol/L (21.0-32.0); CHLORIDE,CL 106 mmol/L (98-107); GLUCOSE RANDOM 116 mg/dL (74-106); POTASSIUM,K 3.8 mmol/L (3.5-5.1); SODIUM,NA 141 mmol/L (136-148)
[2021-06-22] MEDS ORDERED: Adenosine 6 MG/2 ML SDV IVPUSH STA (00:59)
[2021-06-22 01:11] VITALS: BP 123/89; PULSE 109
== END 2021-06-22 01:22 | disposition home or self-care (01) ==
LOC: MW.ED 00:03
DX: I47.1 Supraventricular tachycardia (principal); I48.91 Unspecified atrial fibrillation; Z79.899 Other long term (current) drug therapy; Z79.82 Long term (current) use of aspirin
CPT/HCPCS: 36415; 80053; 83735; 84484; 85025; 93005; 96374; 99285; J0153; 93010; 99284

== ENCOUNTER 2021-10-13 08:54 | Day surgery (SDC) | payer BC ==
[~2021-10-13 08:54] MED LIST: Lactated Ringers 1,000 ML IV SCH
[2021-10-13] MEDS ORDERED: fentaNYL 100 MCG/2 ML SDV ONE (10:35)
[2021-10-13] MEDS ORDERED: Propofol 200 MG/20 ML SDV ONE ×2 (10:35→11:14)
[2021-10-13] MEDS ORDERED: Lidocaine 2% 5 ML SDV ONE (10:36)
[2021-10-13] MEDS ORDERED: Lactated Ringers 1,000 ML IV SCH (11:30)
[2021-10-13 11:45] VITALS: BP 136/72; PULSE 56
== END 2021-10-13 11:53 | disposition home or self-care (01) ==
LOC: MW.SDS 08:54
PROVIDERS: ATTEND Surgery
DX: D12.2 Benign neoplasm of ascending colon (principal); D12.5 Benign neoplasm of sigmoid colon; E78.5 Hyperlipidemia, unspecified; E55.9 Vitamin D deficiency, unspecified; I48.0 Paroxysmal atrial fibrillation; I47.1 Supraventricular tachycardia; T63.461A Toxic effect of venom of wasps, accidental (unintentional), initial encounter; F17.210 Nicotine dependence, cigarettes, uncomplicated; Z79.82 Long term (current) use of aspirin; Z79.899 Other long term (current) drug therapy; Z79.811 Long term (current) use of aromatase inhibitors; Z98.890 Other specified postprocedural states; Z87.891 Personal history of nicotine dependence; Z90.49 Acquired absence of other specified parts of digestive tract
CPT/HCPCS: 45380; J2704; J3010; J7120; 00812

== ENCOUNTER 2022-07-04 12:56 | Emergency (ER) | payer BC ==
[2022-07-04] MEDS ORDERED: Sodium Chloride 0.9% 1,000 ML IV ONE (13:32)
[2022-07-04] MEDS ORDERED: Diltiazem 25 MG/5 ML SDV IVPUSH ONE (13:34)
[2022-07-04] MEDS ORDERED: Diltiazem IR 60 MG Tab PO ONE (13:34)
[2022-07-04 14:21] LABS: CARBON DIOXIDE,CO2 25.6 mmol/L (21.0-32.0); POTASSIUM,K 3.8 mmol/L (3.5-5.1)
[2022-07-04 16:08] VITALS: BP 128/84; PULSE 86
== END 2022-07-04 16:15 | disposition home or self-care (01) ==
LOC: MW.ED 12:56
DX: I48.91 Unspecified atrial fibrillation (principal); Z91.030 Bee allergy status; Z79.899 Other long term (current) drug therapy; Z79.82 Long term (current) use of aspirin
CPT/HCPCS: 36415; 80053; 83735; 84484; 85025; 93005; 96361; 96374; 99285; A9270; J3490; J7030; 93010; 99283